=== PATIENT | female | born 1995 ===

== ENCOUNTER 2025-01-10 08:50 | Outpatient (AMB) | payer BC, SELFPAY ==
--- NOTE | 2025-01-10 08:55 | MHC.OFFVIS ---
Vital Signs 01/10/25 09:00 Height 5 ft 6 in Weight 190 lb 7.67 oz BMI 30.7 BP 92/62 Blood Pressure Location Lt brachial Position Sitting Pulse 89 Pulse Source Pulse Oximeter Pulse Oximetry (%) 98 Oxygen Delivery Method Room Air Intake Visit Reasons: Thyroid nodule Intake Note: New patient present today for Thyroid nodule office visit. Patient stated she is taking Vitamin D3, magnesium, , and Omeprazole prn. She will notify office with doses. Mobile Tester Required: No Accompanied by: Self / Same As Patient Allergies haloperidol [From Haldol] Allergy (Unknown, Verified 01/10/25 09:01) Dystonic Reaction metoclopramide [From Reglan] Allergy (Unknown, Verified 01/10/25 09:01) Dystonic Reaction Medication List - Last Reconciled 01/10/25 by Yessi Emery MD vitamin B complex 1 tab PO DAILY HPI Comments Details: 29-year-old female coming in today for initial evaluation of multinodular goiter. Was reporting trouble swallowing and primary care physician palpated the nodule. Ultrasound from October 2024 done at [facility], images not available to be reviewed, however ultrasound report shows a 1 cm right-sided lower pole nodule which is solid, isoechoic, not taller than wide, no echogenic foci, TR 3 category. Another left upper pole 1.3 X 0.7 X 0.8 cm solid, hypoechoic nodule not taller than wide, smooth, no punctate echogenic foci, TR 4 category. Both do not meet criteria for FNA. Labs from that September 2024 reviewed shows normal TSH of 2.4, with normal free T4 1.18. Patient currently denies heat or cold intolerance, diarrhea or constipation, , palpitation, anxiety, mood changes, changes in appearance of eyes or vision changes, tremors. Reports acne and hair loss.?Reports diaphoresis. Reports low energy. Reports acne whihc is new. BP is low. Reports dizziness , low sex drive. Works out a lot, difficulty losing weight. Gained 20 lbs in 6 months , despite working out and eating well. Reports easy bruising. Patient denies any pain on swallowing or difficulty breathing. Winded at home. Reports dysphagia for a couple of years. Big dry bites is difficult. Feels worsened. Feels after singing raspiness. Patient denies any history of childhood neck radiation. Denies having ever used lithium, amiodarone or biotin supplements.Just on a . Occasional valacyclovir once a year PRN for cold sores. Mother has thyroid cancer. Hypothyroidism in paternal side of the family. Been trying to get for the past 3 months. LMP 12/30/24 , periods every month Obesity BMI 30.7 kg per m2 Current weight 190 lb Despite rigorous exercise, such as heavy lifting and HIIT workouts five to six times a week, and a healthy diet of three meals per day, she struggles with a weight increase of approximately 18 pounds over the last six Physical exam General: sitting comfortably in no acute distress HEENT: normocephalic/atraumatic, Neck: supple, palpable 1 cm right-sided nodule, does have dorsocervical and supraclavicular fat pads Cardiac: normal heart sounds Pulm: normal breath sounds B/L, no added breath sounds Abd: not distended Extremities: no edema, PFSH Medical History (Updated 01/10/25 @ 09:40 by Yessi Emery MD) Obesity (BMI 30.0-34.9) Multinodular goiter Surgical History Hx of appendectomy Hx of tonsillectomy Family History Mother Thyroid cancer Father High blood pressure High cholesterol Social History Alcohol intake: current Alcohol intake frequency: a few times a month Patient Tobacco Use Status: Never used Tobacco Physical Exam Vital Signs: Last Vital Signs Pulse 89 01/10/25 09:00 BP 92/62 01/10/25 09:00 Pulse Ox 98 01/10/25 09:00 Oxygen Delivery Method Room Air 01/10/25 09:00 BMI result Body Mass Index 30.7 Assessment & Plan Assessment & Plan (1) Multinodular goiter: Code(s): E04.2 - Nontoxic multinodular goiter Category: Medical Plan: 29-year-old female with no personal history of head or neck radiation, with family history of thyroid cancers coming in today for initial evaluation of multinodular goiter. Ultrasound from October 2024 done at [facility], images not available to be reviewed, however ultrasound report shows a 1 cm right-sided lower pole nodule which is solid, isoechoic, not taller than wide, no echogenic foci, TR 3 category. Another left upper pole 1.3 X 0.7 X 0.8 cm solid, hypoechoic nodule not taller than wide, smooth, no punctate echogenic foci, TR 4 category. Both do not meet criteria for FNA. Labs from that September 2024 reviewed shows normal TSH of 2.4, with normal free T4 1.18. I explained that it is common to have thyroid nodules. About 95% of the time these nodules are benign. However if the nodule is a certain size based on features or suspicious on ultrasound then a fine need aspiration biopsy is recommended. At this time none of her nodules meet criteria for FNA. I discussed with her that we will plan to repeat an ultrasound of the her thyroid in 1 year from the last 1 which would be in October 2025. She is having a lot of nonspecific symptoms, we will plan to repeat thyroid function given last 1 was 4 months ago. Plan: -ordered TSH with reflex free T4 -plan to repeat an ultrasound of the thyroid in October 2025 (2) Obesity (BMI 30.0-34.9): Code(s): E66.811 - Obesity, class 1 Category: Medical Plan: Patient with current BMI of 30.7 kg per m2. Current weight 190 lb, used to be 172 lb 6 months ago so sometime around fall 2023 per patient. No acromegaly features. My approach includes repeating thyroid function tests to rule out dysfunction and performing a 24-hour urine cortisol test to exclude hypercortisolism given the combination of her symptoms and family history. Recommendations for potential stress reduction and lifestyle modifications were advised. I reviewed with patient the importance of weight loss as it relates to decreasing the risk of diabetes, cardiovascular disease, obstructive sleep apnea,PCOS, arthritis. We reviewed the importance of decreasing total calorie consumption, minimizing fats and carbohydrates. We discussed regarding 500 calorie deficit daily to to lose 1 lb per week by using phone joy such as [employer] fitness pal or lose it I encouraged her to maintain her regular aerobic activity and resistance training. This will also help with the goal by doing regular exercise. She would not be a good candidate for weight management medications given she is actively trying for . Plan: -ordered 24 hour urine cortisol testing -Lifestyle modification advised as mentioned above and below -follow up in 4 weeks to discuss results She did complain of some apneic episodes. Potential Sleep Apnea: Symptoms warrant further exploration, including possible referral for evaluation of sleep apnea. Patients experiencing these symptoms often benefit from sleep studies to assess for sleep disturbances. I have asked her to discuss with the primary care physician regarding this. Patient was informed and verbally consented to the use of an ambient scribe for clinic note documentation during this visit. Plan I spent 60 minutes in reviewing the record, seeing the patient and documenting in the medical record. Orders: Orders TSH reflex Free T4 Today E04.2 - Nontoxic multinodular goiter, E66.811 - Obesity, class 1 Cortisol, Free 24Hr Urine Today E04.2 - Nontoxic multinodular goiter, E66.811 - Obesity, class 1 Creatinine, 24 Hr Group Today E04.2 - Nontoxic multinodular goiter, E66.811 - Obesity, class 1 Patient Instructions: Do blood work Do 24 hr urine collection 24 hr urine collection instructions You have been asked to collect your urine for 24 hours to assess for cortisol excretion. You must choose a 24 hour period of time when you will be home. The morning of the first day, DISCARD the FIRST morning void and then note the time. You will collect every single void from then on for 24 hours. For example, if you wake up at 6am and urinate, flush down that void. You will then collect every drop of urine all day and all night through 6am the following day. You will urinate one last time at 6am for the collection. The jug of urine must be kept in the refrigerator until you bring it to the lab. Follow up in 4 weeks to discuss results Weight loss counselling ? Limit added sugars to less than 25 grams daily. There are 4.2 grams of sugar per teaspoon of sugar. A teaspoon of honey has 6 grams of sugar! Bread also can have more sugar than you think-check labels ? No soda or juices. Drink water, unsweetened iced tea or seltzer ? Limit eating out/take out or prepared meals to twice weekly at most ? Avoid red meat, hot dogs, gold and deli meat. Substitute plant protein for animal protein as much as you can. Beans, nuts, tofu, soy milk ? Limit cheese to 1 ounce a few times weekly ? Eat high fiber foods like beans, apples and green veggies, salsa is a great snack with whole grain cracker like Wasa ? Look for the whole grain stamp when choosing bread etc. Aim for 48 grams of whole grains daily. Whole wheat does not equal whole grains! ? Don't keep tempting treats in the house. Go out once in a while for a treat. ? Don't eat anything deep fried or cream based-no sour cream Talk to PCP about evaluation for sleep apnea Coding Level of Care Code New Pt Level 5 (14073) Diagnoses Multinodular goiter E04.2 Obesity (BMI 30.0-34.9) E66.811 Time Spent (min) 60
[2025-01-10 09:00] VITALS: BP 92/62; PULSE 89; O2SAT 98; BMI 30.7
== END 2025-01-10 09:44 | disposition home or self-care (01) ==
PROVIDERS: PCP Obstetrics & Gynecology; Visit Provider Student in an Organized Health Care Education/Training Program
DX: E04.2 Nontoxic multinodular goiter (principal); E66.811 Obesity, class 1
CPT/HCPCS: 99205

== ENCOUNTER 2025-02-08 14:52 | Outpatient (REF) | payer BC, SELFPAY ==
[2025-02-08 16:19] LABS: TSH reflex Free T4 3.46 uIU/mL (0.32-4.0)
--- OUTSIDE RECORDS SUMMARY | 2025-02-08 18:03 | XMS_ITS | Clinical Summary ---
Author Organization [facility] Address [address] [place] [address] Phone Care Team Providers Care Cloth Checker Name Role Phone Elyssa Esquivel Primary Care Provider [phone] Social History Tobacco Use Types Packs/Day Years Used Date Smoking Tobacco: Never Assessed Comments Unknown Sex and Gender Information Value Date Recorded Sex Assigned at Not on file Legal Sex Female 12:22 AM EST Gender Identity Not on file Sexual Orientation Not on file Plan of Treatment Upcoming Encounters Date Type Department Care Team (Late st Contact Info) Description 03/02/2025 2:00 PM EDT Office Visit Obstetrics & Gynecology - [address] [address] LewisEmely gresham, CNM [address] [place] [address] Health Maintenance Due Date Last Done Comments DTaP,Tdap,and Td Vaccines (1 - Tdap) 2012 Hepatitis B Vaccines (1 of 3 - 19+ 3-dose series) 2012 Cervical Cancer Screening: P ap Smear 2014 COVID-19 Vaccine ( - 2023-2 5 season) 2024 Influenza Vaccine (#1) 2024 Depression Screening 01/28/2025 HIV Screening 01/28/2025 Hepatitis C Screening 01/28/2025 Social Influencers of Health Screening 01/28/2025 HIB Vaccines Aged Out No longer eligi ble based on patient's age to complete this topic HPV Vaccines Aged Out No longer eligi ble based on patient's age to complete this topic Hepatitis A Vaccines Aged Out No long er eligible based on patient's age to complete this topic IPV Vaccines Aged Out No longer eligi ble based on patient's age to complete this topic MMR Vaccines Aged Out No longer eligi ble based on patient's age to complete this topic Meningococcal ACWY Vaccine Aged Out N o longer eligible based on patient's age to complete this topic Meningococcal B Vaccine Aged Out No l onger eligible based on patient's age to complete this topic Pneumococcal Vaccine: Pediat rics (0 to 5 Years) and At-Risk Patients (6 to 64 Years) Aged Out No longer eligible b ased on patient's age to complete this topic RSV Immunization Patients Un yuli 20 months Aged Out No longer eligible b ased on patient's age to complete this topic Varicella Vaccines Aged Out No longer eligible based on patient's age to complete this topic Insurance [facility] Care Teams Cloth Checker Relationship Specialty Start Date End Date Elyssa Esquivel PA [address] [place] [address] PCP - General 01/27/25
== END 2025-02-08 14:53 | disposition home or self-care (01) ==
LOC: HO.LAB 14:52
PROVIDERS: PCP Internal Medicine; Visit Provider Student in an Organized Health Care Education/Training Program
DX: E04.2 Nontoxic multinodular goiter (principal); E66.811 Obesity, class 1
CPT/HCPCS: 36415; 84443

== ENCOUNTER 2025-02-14 09:09 | Outpatient (REF) | payer BC, SELFPAY ==
[2025-02-14 10:37] LABS: Free T4 (Free Thyroxine) 0.88 ng/dL (0.71-1.85); T4 Thyroxine 6.5 ug/dL (4.5-12.0)
--- OUTSIDE RECORDS SUMMARY | 2025-02-14 10:38 | XMS_ITS | Clinical Summary ---
Author Organization [facility] Address [address] [place] [address] Phone Care Team Providers Care Job Site Superintendent Name Role Phone Elyssa Esquivel Primary Care Provider [phone] Social History Tobacco Use Types Packs/Day Years [...] EDT Office Visit Obstetrics & Gynecology - [address] [address] LewisEmely gresham, CNM [address] [place] [address] Health Maintenance Due Date Last Done Comments [...] topic Insurance [facility] Care Teams Job Site Superintendent Relationship Specialty Start Date End Date Elyssa Esquivel PA [address] [place] [address] PCP - General 01/27/25
[2025-02-15 10:28] LABS: Triiodothyronine T3 Free 3.4 pg/mL (2.3-4.2); Triiodothyronine T3 Total 117 ng/dL (76-181)
[2025-02-15 19:13] LABS: Thyroid Peroxidase Antibodies 387 IU/mL (<9)
== END 2025-02-14 09:10 | disposition home or self-care (01) ==
LOC: HO.LAB 09:09
PROVIDERS: PCP Obstetrics & Gynecology; Visit Provider Student in an Organized Health Care Education/Training Program
DX: E04.2 Nontoxic multinodular goiter (principal)
CPT/HCPCS: 36415; 84436; 84439; 84443; 84480; 84481; 86376

== ENCOUNTER 2025-02-14 09:09 | Outpatient (AMB) | payer BC, SELFPAY ==
--- NOTE | 2025-02-14 09:11 | MHC.OFFVIS ---
Vital Signs 02/14/25 09:12 Height 5 ft 6 in Weight 189 lb 6.033 oz BMI 30.6 BP 96/50 L Blood Pressure Location Lt brachial Position Sitting Pulse 83 Pulse Source Pulse Oximeter Pulse Oximetry (%) 99 Oxygen Delivery Method Room Air Intake Visit Reasons: Thyroid nodule Intake Note: Patient present today for Thyroid Nodule follow up. Software Test Analyst Required: No Accompanied by: Self / Same As Patient Allergies haloperidol [From Haldol] Allergy (Unknown, Verified 02/14/25 09:15) Dystonic Reaction metoclopramide [From Reglan] Allergy (Unknown, Verified 02/14/25 09:15) Dystonic Reaction Medication List - Last Reconciled 02/14/25 by Yessi Emery MD [id number] mg-mcg-mg (One Daily ) pkgs PO HPI Comments Details: 29-year-old female coming in today for initial evaluation of multinodular goiter. Was reporting trouble swallowing and primary care physician palpated the nodule. Ultrasound from October 2024 done at [facility], images not available to be reviewed, however ultrasound report shows a 1 cm right-sided lower pole nodule which is solid, isoechoic, not taller than wide, no echogenic foci, TR 3 category. Another left upper pole 1.3 X 0.7 X 0.8 cm solid, hypoechoic nodule not taller than wide, smooth, no punctate echogenic foci, TR 4 category. Both do not meet criteria for FNA. Labs from that September 2024 reviewed shows normal TSH of 2.4, with normal free T4 1.18. Patient currently denies heat or cold intolerance, diarrhea or constipation, , palpitation, anxiety, mood changes, changes in appearance of eyes or vision changes, tremors. Reports acne and hair loss.?Reports diaphoresis. Reports low energy. Reports acne whihc is new. BP is low. Reports dizziness , low sex drive. Works out a lot, difficulty losing weight. Gained 20 lbs in 6 months , despite working out and eating well. Reports easy bruising. Patient denies any pain on swallowing or difficulty breathing. Winded at home. Reports dysphagia for a couple of years. Big dry bites is difficult. Feels worsened. Feels after singing raspiness. Patient denies any history of childhood neck radiation. Denies having ever used lithium, amiodarone or biotin supplements.Just on a . Occasional valacyclovir once a year PRN for cold sores. Mother has thyroid cancer. Hypothyroidism in paternal side of the family. Been trying to get for the past 3 months. LMP 12/30/24 , periods every month Interval history 02/08/25: TSH 3.46 6 weeks today 02/14/25 , G1 NICK per patient Oct 06 2026 Has appt with OB 03/02/[address] Extreme fatigue and nausea One vomiting Lack of apetite Obesity: not adressed note: Patient is currently 6 weeks , would like to hold off on further management of this for now. BMI 30.7 kg per m2 Current weight 190 lb Despite rigorous exercise, such as heavy lifting and HIIT workouts five to six times a week, and a healthy diet of three meals per day, she struggles with a weight increase of approximately 18 pounds over the last six Physical exam General: sitting comfortably in no acute distress HEENT: normocephalic/atraumatic, Neck: supple, palpable 1 cm right-sided nodule, does have dorsocervical and supraclavicular fat pads Cardiac: normal heart sounds Pulm: normal breath sounds B/L, no added breath sounds Abd: not distended Extremities: no edema, Laboratory Tests 02/08/25 15:04 TSH 3.46 [facility] Medical History (Updated 01/10/25 @ 09:40 by Yessi Emery MD) Obesity (BMI 30.0-34.9) Multinodular goiter Surgical History Hx of appendectomy Hx of tonsillectomy Family History Mother Thyroid cancer Father High blood pressure High cholesterol Social History Alcohol intake: current Alcohol intake frequency: a few times a month Patient Tobacco Use Status: Never used Tobacco Physical Exam Vital Signs: Last Vital Signs Pulse 83 02/14/25 09:12 BP 96/50 L 02/14/25 09:12 Pulse Ox 99 02/14/25 09:12 Oxygen Delivery Method Room Air 02/14/25 09:12 BMI result Body Mass Index 30.6 Assessment & Plan Assessment & Plan (1) Multinodular goiter: Code(s): E04.2 - Nontoxic multinodular goiter Category: Medical Plan: 29-year-old female with no personal history of head or neck radiation, with family history of thyroid cancers coming in today for initial evaluation of multinodular goiter. Ultrasound from October 2024 done at [facility], images not available to be reviewed, however ultrasound report shows a 1 cm right-sided lower pole nodule which is solid, isoechoic, not taller than wide, no echogenic foci, TR 3 category. Another left upper pole 1.3 X 0.7 X 0.8 cm solid, hypoechoic nodule not taller than wide, smooth, no punctate echogenic foci, TR 4 category. Both do not meet criteria for FNA. Labs from that September 2024 reviewed shows normal TSH of 2.4, with normal free T4 1.18. Labs from 02/08/2025 showed TSH was 3.46. I explained that it is common to have thyroid nodules. About 95% of the time these nodules are benign. However if the nodule is a certain size based on features or suspicious on ultrasound then a fine need aspiration biopsy is recommended. At this time none of her nodules meet criteria for FNA. I discussed with her that we will plan to repeat an ultrasound of the her thyroid in 1 year from the last 1 which would be in October 2025. Given her estimated due date is in October 2025, she would like to wait to get the ultrasound in November 2025. She can follow up with me in December 2025 to discuss results. She is currently 6 weeks , and a TSH was slightly at the higher end of normal on 02/08/2025, I would like to do comprehensive thyroid testing and repeat labs. Plan: -ordered TSH TSH, free T4, TPO antibodies, total T4 and total T3 levels, we will communicate results over the phone -repeat thyroid ultrasound ordered for November 2025, with follow up in December 2025 Plan see above Orders: Orders Free T4 (Free Thyroxine) Today E04.2 - Nontoxic multinodular goiter Triiodothyronine T3 Free Today E04.2 - Nontoxic multinodular goiter Triiodothyronine T3 Total Today E04.2 - Nontoxic multinodular goiter Thyroid Peroxidase Antibodies Today E04.2 - Nontoxic multinodular goiter Thyroid Stimulating Hormone Today E04.2 - Nontoxic multinodular goiter T4 Thyroxine Today E04.2 - Nontoxic multinodular goiter US thyroid 11/17/25 E04.2 - Nontoxic multinodular goiter Patient Instructions: Do blood work today or sometime this week Do US of the thyroid in Nov 2025 and follow up in Dec 2025 to discuss results Coding Level of Care Code Est Pt Level 3 (16834) Diagnoses Multinodular goiter E04.2
[2025-02-14 09:12] VITALS: BP 96/50; PULSE 83; O2SAT 99; BMI 30.6
--- OUTSIDE RECORDS SUMMARY | 2025-02-14 10:03 | XMS_ITS | Clinical Summary ---
Author Organization [facility] Address [address] [place] [address] Phone Care Team Providers Care Costume Designer Name Role Phone Elyssa Esquivel Primary Care Provider [phone] Social History Tobacco Use Types Packs/Day Years [...] EDT Office Visit Obstetrics & Gynecology - [address] [address] LewisEmley gresham, CNM [address] [place] [address] Health Maintenance Due Date Last Done Comments DTaP,Tdap,and Td Vaccines (1 - Tdap) 2012 Hepatitis B Vaccines (1 of 3 - 19+ 3-dose series) 2012 Cervical Cancer Screening: P ap Smear 2014 COVID-19 Vaccine ( - 2023-2 5 season) 2024 Depression Screening 01/28/2025 HIV Screening 01/28/2025 Hepatitis C Screening 01/28/2025 Social Influencers of Health Screening 01/28/2025 Influenza Vaccine (Season Ended) 2025 HIB Vaccines Aged Out No longer eligi [...] patient's age to complete this topic Insurance [facility] Care Teams Costume Designer Relationship Specialty Start Date End Date Elyssa Esquivel PA [address] [place] [address] PCP - General 01/27/25
== END 2025-02-14 09:29 | disposition home or self-care (01) ==
PROVIDERS: PCP Obstetrics & Gynecology; Visit Provider Student in an Organized Health Care Education/Training Program
DX: E04.2 Nontoxic multinodular goiter (principal)
CPT/HCPCS: 99213

== ENCOUNTER 2025-04-04 11:20 | Outpatient (REF) | payer BC, SELFPAY ==
--- OUTSIDE RECORDS SUMMARY | 2025-04-04 12:44 | XMS_ITS | Clinical Summary ---
Author Organization [facility] Address [address] [place] [address] Phone Care Team Providers Care Application Penetration Tester Name Role Phone Elyssa Esquivel Primary Care Provider [phone] Allergies Active Allergy Reactions Criticality Noted Date Comments Haloperidol Muscular Issues 03/14/2025 Metoclopramide Hcl Muscular Issues 03/24/2025 Medications levothyroxine (SYNTHROID, LEVOTHROID) 25 mcg tablet Take 1 tablet (25 mcg total) by mouth 1 (one) time each day. 02/16/2025 Active vitamin iron fum-folic acid 27-0.8 mg per tablet Take 1 tablet by mouth 1 (one) time each day. Active aspirin 81 mg EC tabletIndication s:Encounter for supervision of normal first in first trimester Take 1 tablet (81 mg total) by mouth 1 (one) time each day. 30 tablet 6 03/14/2025 Active valACYclovir (VALTREX) 500 mg tablet TAKE 4 TABS AT FIRST SIGN OF ATTACK AND THEN TAKE 4 TABS 12 HOURS LATER. 10/08/2024 Active Active Problems Problem Noted Date Diagnosed Date Hypothyroid in , antepartum 03/30/2025 Overview (03/31/2025): 03/31/2025 labs from outside show: 02/14/2025 - TSH 4.10 ( H), free t4 0.88 ( NL), t4 6.5 ( nl), TPO Ab 387 (H) [nl is < 9] Make sure to determine if ALWAYS hypo or if was hyperthyroid and then hypothyroid from treatment- this will determine if we should check TRab and refer to Endo and MFM TRAb during the first trimester if elevated recheck at 18 to 22 and again at 30 to 34 weeks fetus needs monitoring by MFM with Q4 week growth as long as TRab elevated Initial Labs: TSH with reflex Two approaches for pre- meds: 1) TSH at diagnosis of and increase dose of levothyroxine if TSH >2.5, check TSH 4 weeks later 2) Double dose of levothyroxine two days per week, continue baseline dose other days, TSH 4-6 weeks later, keep TSH< 2.5 Q trimester TSH with reflex once stable on meds Do not treat subclinical hypothyroid Do not test for thyroid disease in hyperemesis unless other overt signs of hyperthyroid exist Growth US at 32 weeks Return to pre- dose of levothyroxine while inpatient and provide 1 mo Rx with plan for follow with PCP Herpes zoster 03/24/2025 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 [facility] site: [facility] ([facility]): [address] [place] [address] ([phone]) 2. Delivery site: [facility] 3. Mobile Mommas: 4. Dating criteria: 5. Blood type: 6. Genetic screening: Date: Result: Panorama: Declined Horizon: Declined Nuchal: Ordered Survey: MSAFP: 6. GBS: Date: 7. FOB name: Pilo Molina [birth year], 8. Plans A. Epidural or other pain management - B. Labor support identified - C. Tdap - Date: Flu - Date: D. Breast or Bottle feed: Breast E. Baby's name - F. Circumcision - 9. Hospital Course: Anxiety and depression 03/14/2025 Overview (03/30/2025): She has a hx of anx/dep which she acknowledges has worsened since becoming . She has never been medicated for it and finds talk therapy helpful. She plans on reaching out to her therapist today. Warning s/sx discussed and pt advised if affecting her daily life or worsens to contact us. She states understanding. She is aware she is more at risk of developing depression. Her mother is here with her and supportive. Pt states her partner is also supportive. She denies SI/SA. 03/30/2025 EPDS 12. She has a therapist appt on next week. Estimated Date of Delivery Comme nts Yes 10/06/2025 Based on last me nstrual period of 12/30/2024 (Exact Date) Resolved Problems Problem Noted Date Diagnosed Date Resolved Date Contact dermatitis 03/24/2025 5 Diarrhea 03/24/2025 03/30/2025 Rash 03/24/2025 03/30/2025 Encounters Date Type Department Care Team Description 03/30/2025 3:00 PM EDT Initial Obstetrics & Gynecology [address] [phone] Emely Lewis CNM [place]: 12w6d 03/14/2025 10:00 AM EDT Clinical Support Obstetrics & Gynecology [address] [address] Encounter for supervision of normal first in first trimester (Primary Dx); Encounter for screening of mother; Encounter for screening for nuchal translucency; Encounter for screening for malformations; Anxiety and depression 03/02/2025 2:00 PM EDT Office Visit Obstetrics & Gynecology [address] [phone] Emely Lewis CNM test positive (Primary Dx); Hypothyroid in , antepartum; History of depression from Last 3 Months Immunizations Name Administration Dates Next Due Hepatitis B (Zjnpoav-J-Doomh , Recombivax HB-Adult) 19yo and older 11/02/2019,05/25/2019,04/28/2019 Influenza trivalent, with pr eservative (Fluzone; Afluria) 6mo and older 07/28/2021,07/07/2020,07/26/2019 Surgical History Surgery Date Site/Laterality Comments APPENDECTOMY 11/03/2010 - 11/02/2011 Medical History Medical History Date Comments Thyroid disorder Anxiety and depression Diarrhea 03/24/2025 Contact dermatitis 03/24/2025 Rash 03/24/2025 Family History Medical History Relation Name Comments No Known Problems Brother x3 Hypertension Father Heart attack Maternal Grandfather Thyroid disease Maternal Grandmother Thyroid cancer Mother varicose veins Mother hypertension and diabetes Paternal Grandfather hypertension and diabetes Paternal Grandmother No Known Problems Sister x1 Relation Name Status Comments Brother x3 Alive Father Alive Maternal Grandfather Maternal Grandmother Mother Alive Paternal Grandfather Alive Paternal Grandmother Alive Sister x1 Alive Social History Tobacco Use Types Packs/Day Years Used Date Smoking Tobacco: Never Smokeless Tobacco: Never Tobacco Cessation:Counseling Given: Not Answered Alcohol Use Standard Drinks/Week Comments Never 0 (1 standard drink = 0.6 oz pur e alcohol) Estimated Date of Delivery Comme nts Yes 10/06/2025 Based on last me nstrual period of 12/30/2024 (Exact Date) Sex and Gender Information Value Date Recorded Sex Assigned at Not on file Legal Sex Female 12:22 AM EST Gender Identity Not on file Sexual Orientation Not on file 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 Not on file Not on file Not on file Obstetrics History Para Term AB IAB SAB Ectopic Multiple Livin g Live Births 1 0 0 0 0 0 0 0 0 0 0 Date Outcome GA Total Labor Labor/2nd/3rd Weight Sex Type Anes PTL Saima A1 A5 Name Clin Current Summary Episode Dates Number of Fetuses Estimated Date of Delivery 03/14/2025 - Present (04/04/2025) 10/06/2025 (set by Kristen Ingram RN on 03/14/2025 based on Last Menstrual Period on 12/30/2024 (Exact Date)) Dating Summary Based On NICK GA Diff Last Menstrual Period on 12/30/2024 (Exact Date) 10/06/2025 Working Alternate NICK Entry 10/06/2025 Same Comment:Date entered prior t o episode creation Vitals Pregravid Weight Height TWG (As of 04/04/2025) Pregrav id BMI 86.6 kg (191 lb) 1.702 m (67 ) 1.996 kg (4 lb 6.4 oz) 29.91 Notes Progress Notes - Initial Pre kade - 03/30/2025 - GA:12w6d 03/30/2025 - 12w6d - Emely Lewis CNM OB 12 week appt IP: S: Brittni is a 29 y.o. year old here for IP visit with her patient and spouse. Her is planned. She and the father of the baby are happy. Patient's last menstrual period was 12/30/2024 (exact date). She is certain of her LMP with regular cycles. is currently dated by LMP only. She complains of nausea and breast tenderness. She denies vaginal bleeding or cramping. Flu vaccine: not indicated at today's visit O: Blood pressure 121/79, weight 88.6 kg (195 lb 6.4 oz), last menstrual period 12/30/2024, not currently . See OB physical and labs. Vitals BP: 121/79 (p 86) Weight: 88.6 kg (195 lb 6.4 oz) Assessment Heart Rate: 158 Fundal Height (cm): 12 cm Vaginal Drainage Leaking Fluid: No No results found for: ABORH Lab Results Component Value Date RH Positive 03/14/2025 A: at 12w6d weeks gestation. 1. Encounter for supervision of normal first in first trimester 2. Hypothyroid in , antepartum 3. Anxiety and depression 4. 12 weeks gestation of 5. Screening for malignant neoplasm of cervix 6. Screen for STD (sexually transmitted disease) 7. Screening for depression P: Pap obtained today. Genprobe obtained today. Oriented to THoNE MG and anticipated course. Discussed collaborative practice and [facility] delivery. Reviewed healthy eating and normal weight gain in . Encouraged patient to push PO fluids. Counseled about warning signs of the first trimester and how to contact extension worker provider. Discussed the benefits of breast feeding and strongly encouraged to consider this. Counseled regarding the diagnosis of anomalies. She was offered a referral to maternal medicine for PANORAMA testing. She declines the serum testing, is netta for NL on next week. the referral. Pt is followed by Endocrine/Diabetes office in [facility] to obtain records for co- management. Prob list updated Okay to change to an otc gummy pnv Start baby asa due to primigravida/ reduce risk of Pre-eclampsia RTO 4 weeks. The patient does not require anesthesia consult. This patient's VTE risk status is low. [place] Depression Scale: In the Past 7 Days I have been able to laugh and see the funny side of things.: Not quite so much now I have looked forward with enjoyment to things.: Rather less than I used to I have blamed myself unnecessarily when things went wrong.: Yes, some of the time I have been anxious or worried for no good reason.: Yes, sometimes I have felt scared or panicky for no good reason.: Yes, sometimes Things have been getting on top of me.: No, most of the time I have coped quite well I have been so unhappy that I have had difficulty sleeping.: Not very often I have felt sad or miserable.: Not very often I have been so unhappy that I have been crying.: Only occasionally The thought of harming myself has occurred to me.: Never [place] Depression Scale Total: 12 [place] SCREENING CHARGE (Clinic Only): [id number] Emely Lewis CNM on 03/30/2025 at 4:14 PM EDT 03/30/2025 - 12w6d - Ramin Valdez MA Pt here for IP, needs pap EPDS: 12 Progress Notes - Clinical Remy pport - 03/14/2025 - GA:10w4d 03/14/2025 - 10w4d - Kristen Decker RN Brittni Molina is a 29 y.o. old female at 10w4d. This is Planned. The patient feels happy about the . The FOB is supportive and happy. Patient's last menstrual period was 12/30/2024 (exact date). which would make her currently 10w4d with an Estimated Date of Delivery: 10/06/25. She is certain of her date. An ultrasound has been ordered to confirm dating but pt unsure why. She would like u/s canceled and nuchal ordered. Patient has significant history of: No previous history of OB Past Medical History: Have you had or do you currently have: Diabetes? No Hypertension? No Heart disease, Mitral valve Prolapse, or Rheumatic fever? No An Autoimmune disease such as Lupus or Rheumatoid Arthritis? No Epilepsy, Seizures, or Spells? No Migraine Headaches? During childhood. Per pt 2-3 yrs ago she had a bad migraine, went to [place] , they gave her haldol and she had a bad reaction. Stroke or loss of function or sensation? No Additional Questions: Have you ever been treated for anxiety and/or depression? Yes, anx and dep talk therapy only Are you having problems with crying spells or loss of self-esteem? Yes, pt acknowledges worsening anx/dep since . She denies SI/SA. Have you ever required psychiatric care? no Have you ever had hepatitis, liver disease or jaundice? No Have you ever been treated for blood clots in your veins, deep venous thrombosis, inflammation in the veins, thrombosis, phlebitis, pulmonary embolism or varicosities? No Have you had excessive bleeding after surgery or dental work? No Do you bleed more than other women after a cut or scratch? No Do you have a history of anemia? During childhood Have you ever had Thyroid problems or taken Thyroid medications? Yes,pt just started taking levothyroxine rx'd by endo within the last month Do you have any other Endocrine Problems (ie. PCOS)? No Have you ever been in a major accident or suffered serious trauma? No Within the last year, has anyone hit, slapped, kicked or otherwise hurt you? No In the last year, has anyone forced you to have sex when you didn't want to? No Do you feel safe at home? Yes Have you ever received a blood transfusion? No Would you refuse a blood transfusion if a doctor judged to be medically necessary? No Would you rather than receive a blood transfusion? No If you answered yes to the above questions, is this for advent reasons? N/A Do you know what your blood type is or if you are Rh Negative? unknown Have you ever had abnormal antibodies in your blood? no Have you ever had asthma? Yes, exercise or cold induced. Last used approx 5 yrs ago Have you every had Tuberculosis? No Have you ever had any breast problems? Pt states swollen lymph node that comes and goes located by right breast Have you ever breast fed? N/A Have you ever had any gynecological surgical procedures such as cervical conization, LEEP procedure, Laser treatment, cryosurgery of the cervix or dilation and curettage, etc? No Have you had any other surgical procedures? Yes, appendix removed Have you ever been hospitalized overnight for a non-surgical reason excluding normal delivery? Yes, migraine headache 2-3 yrs ago, tx'd with hadol but had a bad reaction so she was admitted Have you ever had anesthesia complications? No Have you ever had an abnormal pap smear? No Do you have a history of abnormalties of the uterus? No Did your mother take CELIA or any other hormones when she was with you? No Did it take more than one year to become ? No Have you ever been evaluated or treated for infertility? No Is there a history of medical problems in your family which you feel might adversely affect your health or ? No Do you have any other problems we have not asked you about which you feel may be important for us to know for this ? Yes, recurrent cold sore . Pt has valtrex script Do you currently have any of the following symptoms since your last menstrual period: Abdominal pain, blood in the stool or urine, chest pain, shortness of breath, coughing or vomiting up blood, your heart racing or skipping beats, nausea and/or vomiting, pain on urination, or vaginal discharge or vaginal bleeding? No Genetic Screening/Teratology Counseling- Includes patient, baby's father, or anyone in either family with: Patient's age 35 years or older as of estimated date of delivery No Thalassemia (Libyan, Occitan, Mediterranean, or background): MCV less than 80 No Neural tube defect (Meningomyelocele, Spina bifida, or Anencephaly) No Congenital heart defect No Down syndrome No Alex-Sachs (Ashkenazi Sikhism, Cajun, Surinamese Citizen Of [place]) No Mckayla disease (Ashkenazi Sikhism) No Familial dysautonomia (Ashkenazi Sikhism) No Sickle cell disease or trait () No Hemophilia or other blood disorders No Muscular dystrophy No Cystic fibrosis No Pike's chorea No Intellectual disability and/or autism Yes, possibly a 1st cousin If yes, was the person tested for Fragile X? N/A Other inherited genetic or chromosomal disorder No Maternal metabolic disorder (eg. Type 1 diabetes, PKU) No Patient or baby's father had child with defects not listed above No Recurrent loss, or a stillbirth Yes, per pt her mothers sister has had multiple sabs Medications (including supplements, vitamins, herbs, or OTC drugs)/illicit/recreational drugs/alcohol since last menstrual period Yes If yes, agent(s) and strength/dosage: Any other Yes, levothyroxine 25mcg daily OB Infection History: Do you object to being tested for Hepatitis B? No Do you object to being tested for HIV? No Do you feel that you are at high risk for coming contact with the AIDS virus? No Have you ever been treated for tuberculosis? No Have you ever received the BCG vaccine? No Have you ever had a positive skin test for Tuberculosis? No Do you live with someone who has Tuberculosis? No Have you ever been exposed to Tuberculosis? No Do you have Genital Herpes? No Does your partner have Genital Herpes? No Have you had a rash or viral illness since your last period? No Have you ever had Gonorrhea, Chlamydia, Syphilis, Venereal Warts, Trichomoniasis, Pelvic Inflammatory Disease (PID) or any other sexually transmitted disease? Yes, pt doesn't recall what STI Do you know if you are a Group B Streptococcus Carrier? unknown Did you have the Chicken Pox/Varicella? yes Were you vaccinated against Chicken Pox/Varicella? unknown Have you had any other infectious diseases? Yes, shingles on her face above lip. 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 Brittni Molina has also been made aware of the time sensitive nature for this testing to be completed. . The patient now has a gestational age of 10w4d. The patient has agreed that she does want nuchal lucency testing. Ethnicity Based Genetic Testing has been reviewed and the [employer] information sheet has been provided to the patient in their After Visit Summary. The patient was also advised that genetic testing may not be covered by all insurances. The patients states that they understand this information. The patient states that she has not had the genetic screening for Horizon 14 done in the past during a previous . Results were n/a. The patient has agreed that she wants to check her insurance coverage first before deciding if want genetic testing for Horizon 14 and panorama The following Labs have been ordered: Obstetric Panel, HIV with verbal Consent, Hepatitis C, Varicella titer, Urine Culture, and UDS She is aware that her insurance may or may not cover Panorama and/or Horizon 14 test and discussed mendoza only jaquez for test(s) - info given today in her after visit summary . She would not like to proceed with testing. For Horizon Carrier Screening, if patient has [employer], [facility] or [employer] insurances: Not Applicable Electronically signed by: Kristen Ingram RN 03/14/25 10:38 AM EDT Last Filed Vital Signs Vital Sign Reading Time Taken Comments Blood Pressure 121/79 03/30/2025 3:08 PM EDT p 8 6 Pulse 77 03/14/2025 10:33 AM EDT Temperature - - Respiratory Rate - - Oxygen Saturation - - Inhaled Oxygen Concentration - - Weight 88.6 kg (195 lb 6.4 oz) 03/30/2025 3:08 P M EDT Height 170.2 cm (5' 7 ) 03/14/2025 10:33 AM EDT Body Mass Index 30.6 03/14/2025 10:33 AM EDT Plan of Treatment Upcoming Encounters Date Type Department Care Team (Latest Contact Info) Description 04/04/2025 1:00 PM EDT Ancillary Procedure Maternal [address] [phone] Encounter for screening for nuchal translucency; Encounter for screening for malformations; Encounter for supervision of normal first in first trimester 04/25/2025 11:00 AM EDT Routine Obstetrics & Gynecology - [facility] [address] [place] [address] Kely Abraham CNM [address] [place] [address] Health Maintenance Due Date Last Done Comments DTaP,Tdap,and Td Vaccines (1 - Tdap) 2012 COVID-19 Vaccine (2023-2 5 season) 2024 09/22/2021, 12/22/2020, 12/01/2020 Depression Screening 01/28/2025 Social Influencers of Health Screening 01/28/2025 Influenza Vaccine (Season Ended) 2025 07/28/2021, 07/07/2020, 07/26/2019 Cervical Cancer Screening: HPV 03/30/2030 03/30/2025 Hepatitis B Vaccines Completed 11/02/2019, 05/25/2019, 04/28/2019 HIV Screening Completed 03/14/2025 Hepatitis C Screening Completed 03/14/2025 HIB Vaccines Aged Out No longer eligi [...] age to complete this topic Pneumococcal Vaccine: Pediatrics (0 to 5 Years) and At-Risk Patients (6 to 64 Years) Aged Out No longer eligible b ased on patient's age to complete this topic RSV Immunization Patients Under 20 months Aged Out No longer eligible b ased on patient's age to complete this topic Procedures Procedure Name Priority Date/Time Associated Diagnosis Comments PAP SMEAR Routine 03/30/2025 3:38 PM EDT Encounter for supervision of normal first in first trimester Screening for malignant neoplasm of cervix HPV WITH REFLEX GENOTYPE Routine 03/30/2025 3:38 PM EDT Encounter for supervision of normal first in first trimester Screening for malignant neoplasm of cervix DRUG ABUSE SCREEN EXPANDED WITH REFLEX CONFIRMATION, URINE Routine 03/14/2025 12:01 PM EDT Encounter for screening of mother Encounter for supervision of normal first in first trimester CULTURE URINE Routine 03/14/2025 12:01 PM EDT Encounter for screening of mother Encounter for supervision of normal first in first trimester CBC WITH AUTO DIFFERENTIAL Routine 03/14/2025 11:29 AM EDT Encounter for screening of mother Encounter for supervision of normal first in first trimester TYPE AND SCREEN Routine 03/14/2025 11:29 AM EDT Encounter for screening of mother Encounter for supervision of normal first in first trimester TREPONEMA PALLIDUM ANTIBODY WITH REFLEX TO RPR AND PARTICLE AGGLUTINATION Routine 03/14/2025 11:29 AM EDT Encounter for screening of mother Encounter for supervision of normal first in first trimester RUBELLA ANTIBODY IGG Routine 03/14/2025 11:29 AM EDT Encounter for screening of mother Encounter for supervision of normal first in first trimester HIV 1, 2 ANTIBODY, P24 ANTIGEN WITH REFLEX TO DIFFERENTIATION Routine 03/14/2025 11:29 AM EDT Encounter for screening of mother Encounter for supervision of normal first in first trimester HEPATITIS C ANTIBODY Routine 03/14/2025 11:29 AM EDT Encounter for screening of mother Encounter for supervision of normal first in first trimester CBC AND DIFFERENTIAL Routine 03/14/2025 11:29 AM EDT Encounter for screening of mother Encounter for supervision of normal first in first trimester HEPATITIS B SURFACE ANTIGEN WITH CONFIRMATION Routine 03/14/2025 11:29 AM EDT Encounter for screening of mother Encounter for supervision of normal first in first trimester VARICELLA ZOSTER ANTIBODY IGG Routine 03/14/2025 11:29 AM EDT Encounter for screening of mother Encounter for supervision of normal first in first trimester POC , URINE DIAGNOSTIC Routine 03/02/2025 2:17 PM EDT test positive from Last 3 Months Results * HPV with reflex genotype (03/30/2025 3:38 PM EDT) HPV Negative Negative LAB MICROBIOLOGY METHOD 04/01/2025 9:50 AM EDT [facility] Brushing/Spatula Cervix uteri structure / Unknown 03/30/2025 3:38 PM EDT 03/31/2025 6:17 AM EDT Emely Lewis [facility] MOLECULAR DIAGNOSTICS ORD ERABLES Final Result [facility] [address] [place] [address], * Pap smear (03/30/2025 3:38 PM EDT) Interpretation Negative for intraepithelial lesion or malignancy 03/31/2025 4:36 PM EDT [facility] General Categorization Negative 03/31/2025 4:36 PM EDT [facility] Specimen Adequacy Satisfactory for evaluation, endocervical/yu sformation zone component absent 03/31/2025 4:36 PM EDT [facility] Pap Methodology Liquid Based Pap Test 03/31/2025 4:36 PM EDT [facility] Disclaimer The Pap test is a screening test which carries an inherent false negative rate. These test results should be correlated with the patient's clinical findings and history. This Pap test was processed using an automated screening system. Technical cytopathology services provided by [facility], at [address] [place] [address] (CLIA # [id number]/Alexandre Brown MD, Senior Manager Quality Assurance.) 03/31/2025 4:36 PM EDT [facility] Console Pap Interpretation Reported 03/31/2025 4:36 PM EDT [facility] Brushing/Spatula Cervix uteri structure / Unknown 03/30/2025 3:38 PM EDT 03/31/2025 6:17 AM EDT Em[facility] CYTOLOGY ORDERABLES Final Result [facility] [address] [place] [address], [place] [phone] * Drug abuse screen expanded with reflex confirmation, urine (03/14/2025 12:01 PM EDT) Amphetamine Screen, Ur Negative Negative LAB CHEMISTRY METHOD 03/14/2025 2:05 PM EDT [facility] Comment:Certain OTC medicati ons containing ephedrine, phenylephrine, pseudoephedrine and phenylpropanolamine can cause false positive results. Barbiturate Screen, Ur Negative Negative LAB CHEMISTRY METHOD 03/14/2025 2:05 PM EDT [facility] Benzodiazepine Screen, Ur Negative Negative LAB CHEMISTRY METHOD 03/14/2025 2:05 PM EDT [facility] Cocaine Screen, Ur Negative Negative LAB CHEMISTRY METHOD 03/14/2025 2:05 PM EDT [facility] Opiate Screen, Ur Negative Negative LAB CHEMISTRY METHOD 03/14/2025 2:05 PM EDT [facility] Cannabinoid (THC) Screen, Ur Negative Negative LAB CHEMISTRY METHOD 03/14/2025 2:05 PM EDT [facility] Comment:Specimens from patie nts taking pantoprazole sodium (Protonix) have been shown to produce false positive results. Fentanyl, Ur Negative Negative LAB CHEMISTRY METHOD 03/14/2025 2:05 PM EDT [facility] Oxycodone Screen, Ur Negative Negative LAB CHEMISTRY METHOD 03/14/2025 2:05 PM EDT [facility] Urine Urine specimen obtained by clean catch procedure / Unknown Non-blood Collection / Unknown 03/14/2025 12:01 PM EDT 03/14/2025 12:46 PM EDT Narrative [facility] - 03/14/2025 2:05 PM EDT Assay cutoffs: Amphetamines ? 1000 ng/mL Barbiturates ?200 ng/mL Benzodiazepines ?? 200 ng/mL Cocaine ? 300 ng/mL Fentanyl ?1 ng/mL Opiates ? 300 ng/mL Oxycodone ? 100 ng/mL THC ?50 ng/mL Semi-quantitative assay for screening purposes only. Unconfirmed screening result should not be used for non-medical purposes. *POSITIVE RESULTS ARE AUTOMATICALLY SENT FOR ALTERNATE METHOD CONFIRMATION* Emely Lewis [facility] URINE ORDERABLES Final Re sult [facility] [address] [place] [address], * Culture urine (03/14/2025 12:01 PM EDT) Culture, Urine <10,000 cfu/mL Mixed bacterial bharat 03/15/2025 10:36 AM EDT [facility] Urine Urine specimen obtained by clean catch procedure / Unknown Non-blood Collection / Unknown 03/14/2025 12:01 PM EDT 03/14/2025 12:46 PM EDT [facility] MICROBIOLOGY - GENERAL OR DERABLES Final Result Performing Organization Address [facility]/ZIP Co de Phone Number [facility] [address] [place] [address], * Hepatitis C antibody (03/14/2025 11:29 AM EDT) Hepatitis C Antibody Negative Negative LAB CHEMISTRY METHOD 03/14/2025 2:30 PM EDT [facility] Blood Venous blood specimen / Unknown Venipuncture / Unknown 03/14/2025 11:29 AM EDT 03/14/2025 12:45 PM EDT [facility] BLOOD ORDERABLES Final Re sult Performing Organization Address [facility] de Phone Number [facility] [address] [place] [address], * HIV 1,2 antibody, p24 antigen with reflex to differentiation (03/14/2025 11:29 AM EDT) HIV Combo AB/AG Negative Negative LAB CHEMISTRY METHOD 03/14/2025 2:30 PM EDT [facility] Blood Venous blood specimen / Unknown Venipuncture / Unknown 03/14/2025 11:29 AM EDT 03/14/2025 12:45 PM EDT Narrative [facility] - 03/14/2025 2:30 PM EDT This assay is a 4th generation assay allowing for earlier detection of HIV infection by detecting the presence of the HIV-1 p24 antigen as well as the traditional antibodies to HIV type 1 (including group O) and type 2. ??Use of a 4th generation assay is the current CDC recommendation for HIV screening. [facility] LAB BLOOD ORDERABLES Final Re sult Performing Organization Address [facility]/ZIP Co de Phone Number [facility] [address] [place] [address], [place] [phone] * Hepatitis B surface antigen with reflex to confirmation (03/14/2025 11:29 AM EDT) [facility] Hepatitis B Surface Ag Negative Negative LAB CHEMISTRY METHOD 03/14/2025 2:39 PM EDT [facility] Blood Venous blood specimen / Unknown Venipuncture / Unknown 03/14/2025 11:29 AM EDT 03/14/2025 12:45 PM EDT Narrative [facility] - 03/14/2025 2:39 PM EDT Over the counter supplements containing high doses of biotin may interfere with this assay. ??If interference is suspected, patients shoud be retested after refraining from biotin supplements for 72 hours. [facility] BLOOD ORDERABLES Final Re sult Performing Organization Address City/[facility]/ZIP Co de Phone Number [facility] [address] [place] [address], [place] [phone] * Treponema pallidum antibody with reflex to RPR and particle agglutination (03/14/2025 11:29 AM EDT) [facility] T. Pallidum Antibodies Negative Negative LAB CHEMISTRY METHOD 03/14/2025 4:46 PM EDT [facility] Blood Venous blood specimen / Unknown Venipuncture / Unknown 03/14/2025 11:29 AM EDT 03/14/2025 12:45 PM EDT [facility] BLOOD ORDERABLES Final Re sult [facility] [address] [place] [address], [place] [phone] * (ABNORMAL) CBC auto differential (03/14/2025 11:29 AM EDT) [facility] WBC 12.7(H) 4.8 - 10.8 K/mcL LAB HEMETOLOGY METHOD 03/14/2025 2:28 PM EDT [facility] RBC 4.10 3.80 - 4.80 M/mcL LAB HEMETOLOGY METHOD 03/14/2025 2:28 PM [facility] Hemoglobin 12.8 11.5 - 16.0 g/dL LAB HEMETOLOGY METHOD 03/14/2025 2:28 PM [facility] Hematocrit 37.2 35.0 - 47.0 % LAB HEMETOLOGY METHOD 03/14/2025 2:28 PM [facility] MCV 90.3 79.0 - 98.0 FL LAB HEMETOLOGY METHOD 03/14/2025 2:28 PM [facility] MCH 31.1 27.0 - 32.0 pcg LAB HEMETOLOGY METHOD 03/14/2025 2:28 PM [facility] MCHC 34.4 32.0 - 37.0 g/dL LAB HEMETOLOGY METHOD 03/14/2025 2:28 PM [facility] RDW 12.8 11.0 - 15.0 % LAB HEMETOLOGY METHOD 03/14/2025 2:28 PM [facility] Platelets 318 130 - 400 K/mcL LAB HEMETOLOGY METHOD 03/14/2025 2:28 PM [facility] MPV 11.0 7.0 - 11.0 FL LAB HEMETOLOGY METHOD 03/14/2025 2:28 PM [facility] NRBC 0.0 <1.0 % LAB HEMETOLOGY METHOD 03/14/2025 2:28 PM [facility] NRBC Absolute 0.00 <0.10 K/mcL LAB HEMETOLOGY METHOD 03/14/2025 2:28 PM [facility] Neutrophils Relative 73.6 % LAB HEMETOLOGY METHOD 03/14/2025 2:28 PM [facility] Lymphocytes Relative 15.7 % LAB HEMETOLOGY METHOD 03/14/2025 2:28 PM [facility] Monocytes Relative 8.2 % LAB HEMETOLOGY METHOD 03/14/2025 2:28 PM [facility] Eosinophils Relative 1.7 % LAB HEMETOLOGY METHOD 03/14/2025 2:28 PM [facility] Basophils Relative 0.3 % LAB HEMETOLOGY METHOD 03/14/2025 2:28 PM [facility] Immature Granulocytes Relative 0.5 % LAB HEMETOLOGY METHOD 03/14/2025 2:28 PM [facility] Neutrophils Absolute 9.31(H) 1.50 - 7.00 K/mcL LAB HEMETOLOGY METHOD 03/14/2025 2:28 PM [facility] Lymphocytes Absolute 1.99 1.00 - 5.00 K/mcL LAB HEMETOLOGY METHOD 03/14/2025 2:28 PM [facility] Monocytes Absolute 1.04(H) 0.20 - 1.00 K/mcL LAB HEMETOLOGY METHOD 03/14/2025 2:28 PM [facility] Eosinophils Absolute 0.21 0.00 - 0.50 K/mcL LAB HEMETOLOGY METHOD 03/14/2025 2:28 PM [facility] Basophils Absolute 0.04 0.00 - 0.20 K/mcL LAB HEMETOLOGY METHOD 03/14/2025 2:28 PM [facility] Immature Granulocytes Absolute 0.06(H) 0.00 - 0.03 K/mcL LAB HEMETOLOGY METHOD 03/14/2025 2:28 PM [facility] Blood Venous blood specimen / Unknown Venipuncture / Unknown 03/14/2025 11:29 AM EDT 03/14/2025 12:46 PM EDT [facility]ely [facility] BLOOD ORDERABLES Final Re sult Performing Organization Address [facility]/ZIP Co de Phone Number [facility] [address] [place] [address], [place] [phone] * Rubella antibody IgG (03/14/2025 11:29 AM EDT) Rubella IgG Quant 63.1 >=10.0 I Unit/mL LAB CHEMISTRY METHOD 03/14/2025 2:01 PM EDT [facility] Rubella IgG Antibody Interp Positive Positive LAB CHEMISTRY METHOD 03/14/2025 2:01 PM EDT [facility] Blood Venous blood specimen / Unknown Venipuncture / Unknown 03/14/2025 11:29 AM EDT 03/14/2025 12:45 PM EDT [facility] BLOOD ORDERABLES Final Re sult Performing Organization Address City/[facility]/ZIP Co de Phone Number [facility] [address] [place] [address], [place] [phone] * Type and screen (03/14/2025 11:29 AM EDT) ABO Group O 03/14/2025 1:52 PM EDT [facility] Rh Type Positive 03/14/2025 1:52 PM EDT [facility] Antibody Screen Negative 03/14/2025 1:52 PM EDT [facility] Blood Venous blood specimen / Unknown Venipuncture / Unknown 03/14/2025 11:29 AM EDT 03/14/2025 12:[address] [facility] ORDERABLE S Final Result Performing Organization Address [facility]/ZIP Co de Phone Number [facility] [address] [place] [address], * Varicella zoster antibody IgG (03/14/2025 11:29 AM EDT) Varicella IgG Positive Positive LAB CHEMISTRY METHOD 03/14/2025 2:07 PM EDT [facility] Varicella Zoster IgG 5.88 >=1.00 S/CO LAB CHEMISTRY METHOD 03/14/2025 2:07 PM EDT [facility] Blood Venous blood specimen / Unknown Venipuncture / Unknown 03/14/2025 11:29 AM EDT 03/14/2025 12:45 PM EDT Narrative [facility] - 03/14/2025 2:07 PM EDT Interpretation >= 1.00 S/CO is considered to be consistent with Immunity [facility]ely [facility] BLOOD ORDERABLES Final Re sult Performing Organization Address [facility] Co de Phone Number [facility] [address] [place] [address], * POC , urine manually resulted (03/02/2025 2:17 PM EDT) Urine Urine specimen obtained by clean catch procedure / Unknown 03/02/2025 2:17 PM EDT [facility] POINT OF CARE TEST ENTER/EDIT ORDERABLES Final Result from Last 3 Months Insurance [facility] Care Teams Application Penetration Tester Relationship Specialty Start Date End Date Elyssa Esquivel PA [address] [place] [id number] PCP - General 01/27/25
[2025-04-04 13:08] LABS: Free T4 (Free Thyroxine) 0.83 ng/dL (0.71-1.85); Thyroid Stimulating Hormone 2.27 uIU/mL (0.32-4.0)
[2025-04-04 13:22] LABS: T4 Thyroxine 8.7 ug/dL (4.5-12.0)
[2025-04-05 03:04] LABS: Triiodothyronine T3 Free 2.9 pg/mL (2.3-4.2); Triiodothyronine T3 Total 143 ng/dL (76-181)
== END 2025-04-04 11:21 | disposition home or self-care (01) ==
LOC: HO.LAB 11:20
PROVIDERS: PCP Internal Medicine; Visit Provider Student in an Organized Health Care Education/Training Program
DX: E04.2 Nontoxic multinodular goiter (principal); E03.8 Other specified hypothyroidism
CPT/HCPCS: 36415; 84436; 84439; 84443; 84480; 84481

== ENCOUNTER 2025-04-11 09:03 | Outpatient (AMB) | payer BC, SELFPAY ==
--- NOTE | 2025-04-11 09:16 | MHC.OFFVIS ---
Vital Signs 04/11/25 09:17 Height 5 ft 6 in Weight 195 lb 15.855 oz BMI 31.6 BP 84/50 L Blood Pressure Location Lt brachial Position Sitting Pulse 93 Pulse Source Pulse Oximeter Pulse Oximetry (%) 98 Oxygen Delivery Method Room Air Intake Visit Reasons: 7 wk f/u Intake Note: Patient present today for a 7 week follow up visit. Miller Head Assistant Wet Process Required: No Accompanied by: Self / Same As Patient Allergies haloperidol [From Haldol] Allergy (Unknown, Verified 04/11/25 09:20) Dystonic Reaction metoclopramide [From Reglan] Allergy (Unknown, Verified 04/11/25 09:20) Dystonic Reaction Medication List - Last Reconciled 04/11/25 by Yessi Emery MD levothyroxine 25 mcg PO DAILY [id number] fum-folic [id number] [phone] mg-mcg-mg (One Daily ) pkgs PO HPI Comments Details: 29-year-old female coming in today for follow up of multinodular goiter and subclinical hypothyroidism. HPI Was reporting trouble swallowing and primary care physician palpated the nodule. Ultrasound from October 2024 done at [facility], images not available to be reviewed, however ultrasound report shows a 1 cm right-sided lower pole nodule which is solid, isoechoic, not taller than wide, no echogenic foci, TR 3 category. Another left upper pole 1.3 X 0.7 X 0.8 cm solid, hypoechoic nodule not taller than wide, smooth, no punctate echogenic foci, TR 4 category. Both do not meet criteria for FNA. Labs from that September 2024 reviewed shows normal TSH of 2.4, with normal free T4 1.18. Patient currently denies heat or cold intolerance, diarrhea or constipation, , palpitation, anxiety, mood changes, changes in appearance of eyes or vision changes, tremors. Reports acne and hair loss.?Reports diaphoresis. Reports low energy. Reports acne whihc is new. BP is low. Reports dizziness , low sex drive. Works out a lot, difficulty losing weight. Gained 20 lbs in 6 months , despite working out and eating well. Reports easy bruising. Patient denies any pain on swallowing or difficulty breathing. Winded at home. Reports dysphagia for a couple of years. Big dry bites is difficult. Feels worsened. Feels after singing raspiness. Patient denies any history of childhood neck radiation. Denies having ever used lithium, amiodarone or biotin supplements.Just on a . Occasional valacyclovir once a year PRN for cold sores. Mother has thyroid cancer. Hypothyroidism in paternal side of the family. Been trying to get for the past 3 months. LMP 12/30/24 , periods every month Interval history 02/14/2025 02/08/25: TSH 3.46 6 weeks today 02/14/25 , G1 NICK per patient Oct 06 2026 Has appt with OB 03/02/[address] Extreme fatigue and nausea One vomiting Lack of apetite Interval history 04/11/2025 02/14/2025: TSH 4.10, free T4 0.88, T4 6.5, free T3 3.4, total T3 117 14 weeks today 04/11/25 Reports improved nausea, energy NICK per patient 10/06/2026 Following with Ob at [facility] to [address] [place] [address] Currently on levothyroxine 25 mcg daily started on 02/16/2025 as given TSH should be targeted to less than 2.5 in the 1st trimester Most recent blood work from 04/04/2025 levels good for second trimester of Obesity: not adressed note: Patient is currently 6 weeks , would like to hold off on further management of this for now. BMI 30.7 kg per m2 Current weight 190 lb Despite rigorous exercise, such as heavy lifting and HIIT workouts five to six times a week, and a healthy diet of three meals per day, she struggles with a weight increase of approximately 18 pounds over the last six Physical exam General: sitting comfortably in no acute distress HEENT: normocephalic/atraumatic, Neck: supple, palpable 1 cm right-sided nodule, does have dorsocervical and supraclavicular fat pads Cardiac: normal heart sounds Pulm: normal breath sounds B/L, no added breath sounds Abd: not distended Extremities: no edema, Laboratory Tests 02/08/25 15:04 TSH 3.46 Laboratory Tests 02/14/25 04/04/25 09:43 11:36 TSH 4.10 H 2.27 Free T4 0.88 0.83 Thyroxine (T4) 6.5 8.7 Free T3 3.4 2.9 Total T3 117 143 [facility] Medical History (Updated 04/11/25 @ 09:32 by Yessi Emery MD) Subclinical hypothyroidism Obesity (BMI 30.0-34.9) Multinodular goiter Surgical History Hx of appendectomy Hx of tonsillectomy Family History Mother Thyroid cancer Father High blood pressure High cholesterol Social History Alcohol intake: current Alcohol intake frequency: a few times a month Patient Tobacco Use Status: Never used Tobacco Assessment & Plan Assessment & Plan (1) Multinodular goiter: Code(s): E04.2 - Nontoxic multinodular goiter Category: Medical Plan: 29-year-old female with no personal history of head or neck radiation, with family history of thyroid cancers coming in today for initial evaluation of multinodular goiter. Ultrasound from October 2024 done at [facility], images not available to be reviewed, however ultrasound report shows a 1 cm right-sided lower pole nodule which is solid, isoechoic, not taller than wide, no echogenic foci, TR 3 category. Another left upper pole 1.3 X 0.7 X 0.8 cm solid, hypoechoic nodule not taller than wide, smooth, no punctate echogenic foci, TR 4 category. Both do not meet criteria for FNA. I explained that it is common to have thyroid nodules. About 95% of the time these nodules are benign. However if the nodule is a certain size based on features or suspicious on ultrasound then a fine need aspiration biopsy is recommended. At this time none of her nodules meet criteria for FNA. I discussed with her that we will plan to repeat an ultrasound of the her thyroid in 1 year from the last 1 which would be in October 2025. Given her estimated due date is in October 2025, she would like to wait to get the ultrasound in November 2025. She can follow up with me in December 2025 to discuss results. She is also currently 14 weeks , 1 para 0, NICK October 06 we started her on low-dose levothyroxine 25 mcg daily in February 2025 as TSH was elevated. Most recent labs showed TSH has come down now within good range from labs April 2025. Plan: -ordered TSH TSH, free T4, free T3, total T4 and total T3 levels, to be done in 6 weeks I will be mid May 2025, we will communicate results over the phone -continue levothyroxine 25 mcg daily -follow up in 4 months -repeat thyroid ultrasound ordered for November 2025, - (2) Subclinical hypothyroidism: Code(s): E03.8 - Other specified hypothyroidism Category: Medical Plan: See above (3) : Code(s): Z34.90 - Encounter for supervision of normal , unspecified, unspecified trimester Category: Medical Qualifiers: Weeks of gestation: 14 weeks Qualified Code(s): Z3A.14 - 14 weeks gestation of Plan: See above Plan see above Medications: Refilled levothyroxine 25 mcg PO DAILY 30 tabs 8RF Patient Instructions: Continue levothyroxine 25 mcg daily Do blood mid May 2025 , we will communicate results Follow up in 4 months Coding Level of Care Code Est Pt Level 3 (38487) Diagnoses Multinodular goiter E04.2 Subclinical hypothyroidism E03.8 14 weeks gestation of Z3A.14 Weeks of gestation: 14 weeks
[2025-04-11 09:17] VITALS: BP 84/50; PULSE 93; O2SAT 98; BMI 31.6
--- OUTSIDE RECORDS SUMMARY | 2025-04-11 09:23 | XMS_ITS | Clinical Summary ---
Author Organization [facility] Address [address] [place] [address] Phone Care Team Providers Care Cook Specialty Foreign [employer] Name Role Phone Elyssa Esquivel Primary Care Provider [phone] Allergies Active Allergy Reactions Criticality Noted Date [...] in first trimester 03/14/2025 Overview (03/30/2025): 1. [facility] site: [facility] ([facility]): [address] [place] [address] ([phone]) 2. Delivery site: [facility] 3. Mobile Mommas: 4. Dating criteria: 5. [...] Encounters Date Type Department Care Team Description 04/04/2025 1:00 PM EDT Ancillary Procedure Maternal Medicine [address] [address] Encounter for screening for nuchal translucency; Encounter for screening for malformations; Encounter for supervision of normal first in first trimester; Hypothyroid in , antepartum, second trimester; Obesity affecting in second trimester 03/30/2025 3:00 PM EDT Initial Obstetrics & Gynecology [address] [address] Emely Lewis CNM [place]: 12w6d 03/14/2025 10:00 AM EDT Clinical Support Obstetrics & [address] [id number] Encounter for supervision of normal first in first trimester (Primary Dx); Encounter for screening of mother; Encounter for screening for nuchal translucency; Encounter for screening for malformations; Anxiety and depression 03/02/2025 2:00 PM EDT Office Visit Obstetrics & Gynecology [address] [address] Emely Lewis, LESLI test positive (Primary Dx); Hypothyroid in , antepartum; History of depression from Last 3 Months Immunizations Name Administration Dates Next Due Hepatitis B (Ptxlnbg-R-Ketjy , Recombivax HB-Adult) 19yo and older 11/02/2019,05/25/2019,04/28/2019 [...] Estimated Date of Delivery 03/14/2025 - Present (04/11/2025) 10/06/2025 (set by Kristen Ingram RN on 03/14/2025 based on Last Menstrual Period on 12/30/2024 (Exact Date)) Dating Summary Based On NICK GA Diff Last Menstrual Period on 12/30/2024 (Exact Date) 10/06/2025 Working Alternate NICK Entry 10/06/2025 Same Comment:Date entered prior t o episode creation Vitals Pregravid Weight Height TWG (As of 04/11/2025) Pregrav id BMI 86.6 kg (191 lb) [...] the first trimester and 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 Discussed the benefits of breast feeding and strongly encouraged to consider this. Counseled regarding the diagnosis of anomalies. She was offered a referral to maternal medicine for PANORAMA testing. She declines the serum testing, is netta for NL on next week. the referral. Pt is followed by Endocrine/Diabetes office in [facility] sign DARIN to obtain records for co- management. Prob list updated Okay to change to an otc gummy pnv Start baby asa due to primigravida/ reduce risk of Pre-eclampsia RTO 4 weeks. The patient does not require anesthesia consult. This patient's VTE risk status is low. [place] Depression Scale: In the Past 7 Days [...] harming myself has occurred to me.: Never [place] Depression Scale Total: 12 [place] SCREENING CHARGE (Clinic Only): [id number] Emely Lewis CNM on 03/30/2025 at 4:14 PM EDT 03/30/2025 - 12w6chago - Ramin Valdez [place] Pt here for [...] to the above questions, is this for pentecostal reasons? N/A Do you know what your [...] of estimated date of delivery No Thalassemia (Kazakh, Turkmen, Mediterranean, or background): MCV less than 80 No Neural tube defect (Meningomyelocele, Spina bifida, or Anencephaly) No Congenital heart defect No Down syndrome No Alex-Sachs (Ashkenazi Cheondoism, Cajun, Mongolian Beninese) No Mckayla disease (Ashkenazi Cheondoism) No Familial dysautonomia (Ashkenazi Cheondoism) No Sickle cell disease or trait () No Hemophilia or other blood disorders No Muscular dystrophy No Cystic fibrosis No Audrain's chorea No Intellectual disability and/or autism Yes, [...] above lip. 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 Brittni Molina has also been made aware of the time sensitive nature for this testing to be completed. . The patient now has a gestational age of 10w4d. The patient has agreed that she does want nuchal lucency testing. Ethnicity Based Genetic Testing has been reviewed and the [employer] information sheet has been provided to the [...] For Horizon Carrier Screening, if patient has [employer], [facility] or [employer] insurances: Not Applicable Electronically signed by: Kristen [...] Care Team (Late st Contact Info) Description 04/25/2025 11:00 AM EDT Routine Obstetrics & Gynecology - [facility] [address] [place] [address] nAnamariapeter Kely, CNM [address] [place] [address] 05/23/2025 9:00 AM EDT Ancillary Procedure Maternal Medicine - [address] [address] Health Maintenance Due Date Last Done Comments DTaP,Tdap,and Td Vaccines (1 - Tdap) 2012 COVID-19 Vaccine (2023-2 5 season) 2024 09/22/2021, 12/22/2020, 12/01/2020 Cholesterol Screening (Lipid Panel) 01/28/2025 Depression Screening 01/28/2025 Social Influencers of Health [...] Procedure Name Priority Date/Time Associated Diagnosis Comments US OB LESS 14 WKS SINGLE OR FIRST GESTATION Routine 04/04/2025 1:35 PM EDT Encounter for screening for nuchal translucency Encounter for screening for malformations Hypothyroid in , antepartum, second trimester Obesity affecting in second trimester US OB LESS 14 WKS NUCHAL MEASUREMENT Routine 04/04/2025 1:35 PM EDT Encounter for screening for nuchal translucency Encounter for screening for malformations Encounter for supervision of normal first in first trimester PAP SMEAR Routine 03/30/2025 3:38 PM EDT [...] positive from Last 3 Months Results * US OB Less 14 Wks Nuchal Measurement (04/04/2025 1:35 PM EDT) Anatomical Region Laterality Modality Body Ultrasound 04/04/2025 12:5 8 PM EDT Narrative 04/04/2025 2:38 PM EDT OBSTETRICS REPORT ?(Signed Final 04/04/2025 02:38 pm) PATIENT INFO: ID #: ? [id number] ? : ??[birth year] (29 yrs)(F) Name: ? BRITTNI MOLINA ? Visit Date: 04/04/2025 12:58 pm PERFORMED BY: Attending: ?Mili Silva MD Performed By: ? Willian Webster RDMS Referred By: ?Emely Lewis CNM Ref. Address: ? [address] ? [place], [place] ??[address] Location: ? [facility] SERVICE(S) PROVIDED: US Nuchal Translucency ?75359 US < 14 weeks Abdominal Ultrasound ?30678 INDICATIONS: Obesity complicating , 1st ?O99.211 trimester Hypothyroid in , antepartum ? O99.280 Encounter for screening for nuchal ?? Z36.82 translucency Encounter for screening for ?Z36.3 malformations 13 weeks gestation of ?Z3A.13 TECHNIQUE/SCAN QUALITY: Technique: ?? Transabdominal Scan ? Satisfactory Quality: OB HISTORY: : ?1 ? Term: ?? 0 VITAL SIGNS: Weight (lb) ?? Height ?BMI 195 ? 5'7 ?30.54 EVALUATION: Number Of Fetuses: ? 1 Preg. Location: ?Intrauterine Heart Rate(bpm): ?? 161 Cardiac Activity: ?Observed Presentation: ?Variable Placenta Location: ?Posterior Appearance: ?Grade 0 Cord Insertion: ?Visualized BIOMETRY: GESTATIONAL AGE: LMP: ? 13w 4d ?Date: ??12/30/24 ?NICK: ?? 10/06/25 Best: ?13w 4d ?? Det. By: ??LMP ??(12/30/24) ?NICK: ?? 10/06/25 1ST TRIMESTER GENETIC SONOGRAM SCREENING: CRL: ? 78.72 ??mm ? G.Age: ?? 13w 6d ? NICK: ?? 10/04/25 Nuc Trans: ? 1.7 ??mm STANDARD ANATOMY: Cranium: ?Normal appearance Choroid Plexus: ? Normal appearance Stomach: ?Normal appearance Abdominal Wall: ? Normal appearance Cord Vessels: ? Normal 3-Vessel Cord Bladder: ?Normal appearance Upper Extremities: ?Seen Lower Extremities: ?Seen CERVIX UTERUS ADNEXA: Uterus Size(cm) ? 9.69 ?? x ?? 9.47 ?? x ??8.88 Uterus Vol(ml): ?426.66 Anteverted, anteflexed. Myometrium homogeneous, no lesions identified. Right Ovary Normal in size and appearance. It is found between the uterus and the pelvic sidewall. Left Ovary Normal in size and appearance. It is found between the uterus and the pelvic sidewall. Cul De Sac There is no free fluid in the cul de sac. COMMENTS: Ms. Molina is being seen for first trimester screening for aneuploidy. - Her medical history is significant for hypothyroidism, anxiety and depression. She takes 50 mcg Levothyroxine. - Cell free DNA screening was declined. - Ultrasound findings: The nuchal translucency measurement is < 95th% for the gestational age. - biometry is consistent with dates. ??Assessment of the anatomy is appropriate for the gestational age. There are no ultrasound findings to suggest aneuploidy. - Plan: 1. A detailed ultrasound (BMI) and cervical length screening for risk of have been scheduled. - 2. The patient should be offered second trimester MSAFP only, to assess for risk of an open neural tube defect. Mili Silva MD Electronically Signed Final Report ?? 04/04/2025 02:38 pm Procedure Mili Ulrich MD - 04/04/2025 OBSTETRICS REPORT (Signed Final 04/04/2025 02:38 pm) PATIENT INFO: ID #: [id number] : [birth year] (29 yrs)(F) Name: BRITTNI MOLINA Visit Date: 04/04/2025 12:58 pm PERFORMED BY: Attending: Mili Silva MD Performed By: Willian Webster RDMS Referred By: Emely Lewis [facility] Ref. Address: [address] [place] [address] Location: [facility] SERVICE(S) PROVIDED: US Nuchal Translucency 67855 US < 14 weeks Abdominal Ultrasound 61045 INDICATIONS: Obesity complicating , 1st O99.211 trimester Hypothyroid in , antepartum O99.280 Encounter for screening for nuchal Z36.82 translucency Encounter for screening for Z36.3 malformations 13 weeks gestation of Z3A.13 TECHNIQUE/SCAN QUALITY: Technique: Transabdominal Scan Satisfactory Quality: OB HISTORY: : 1 Term: 0 VITAL SIGNS: Weight (lb) Height BMI 195 5'7 30.54 EVALUATION: Number Of Fetuses: 1 Preg. Location: Intrauterine Heart Rate(bpm): 161 Cardiac Activity: Observed Presentation: Variable Placenta Location: Posterior Appearance: Grade 0 Cord Insertion: Visualized BIOMETRY: GESTATIONAL AGE: LMP: 13w 4d Date: 12/30/24 NICK: 10/06/25 Best: 13w 4d Det. By: LMP (12/30/24) NICK: 10/06/25 1ST TRIMESTER GENETIC SONOGRAM SCREENING: CRL: 78.72 mm G.Age: 13w 6d NICK: 10/04/25 Nuc Trans: 1.7 mm STANDARD ANATOMY: Cranium: Normal appearance Choroid Plexus: Normal appearance Stomach: Normal appearance Abdominal Wall: Normal appearance Cord Vessels: Normal 3-Vessel Cord Bladder: Normal appearance Upper Extremities: Seen Lower Extremities: Seen CERVIX UTERUS ADNEXA: Uterus Size(cm) 9.69 x 9.47 x 8.88 Uterus Vol(ml): 426.66 Anteverted, anteflexed. Myometrium homogeneous, no lesions identified. Right Ovary Normal in size and appearance. It is found between the uterus and the pelvic sidewall. Left Ovary Normal in size and appearance. It is found between the uterus and the pelvic sidewall. Cul De Sac There is no free fluid in the cul de sac. COMMENTS: Ms. Molina is being seen for first trimester screening for aneuploidy. - Her medical history is significant for hypothyroidism, anxiety and depression. She takes 50 mcg Levothyroxine. - Cell free DNA screening was declined. - Ultrasound findings: The nuchal translucency measurement is < 95th% for the gestational age. - biometry is consistent with dates. Assessment of the anatomy is appropriate for the gestational age. There are no ultrasound findings to suggest aneuploidy. - Plan: 1. A detailed ultrasound (BMI) and cervical length screening for risk of have been scheduled. - 2. The patient should be offered second trimester MSAFP only, to assess for risk of an open neural tube defect. Mili Silva MD Electronically Signed Final Report 04/04/2025 02:38 pm us Emely Lewis CNM IMG OB US PROCEDURES Final Re sult * US OB Less 14 Wks Single or First Gestation (04/04/2025 1:35 PM EDT) Anatomical Region Laterality Modality Body Ultrasound 04/04/2025 12:5 8 PM EDT Narrative 04/04/2025 2:38 PM EDT OBSTETRICS REPORT ?(Signed Final 04/04/2025 02:38 pm) PATIENT INFO: ID #: ? [id number] ? : ??[birth year] (29 yrs)(F) Name: ? BRITTNI JESSE ? Visit Date: 04/04/2025 12:58 pm PERFORMED BY: Attending: ?Mili Silva MD Performed By: ? Willian Webster RDMS Referred By: ?Emely Lewis CNM Ref. Address: ? [address] ? [place], [place] ??[address] Location: ? [facility] SERVICE(S) PROVIDED: US Nuchal Translucency ?58144 US < 14 weeks Abdominal Ultrasound ?49476 INDICATIONS: Obesity complicating , 1st ?O99.211 trimester Hypothyroid in , antepartum ? O99.280 Encounter for screening for nuchal ?? Z36.82 translucency Encounter for screening for ?Z36.3 malformations 13 weeks gestation of ?Z3A.13 TECHNIQUE/SCAN QUALITY: Technique: ?? Transabdominal Scan ? Satisfactory Quality: OB HISTORY: : ?1 ? Term: ?? 0 VITAL SIGNS: Weight (lb) ?? Height ?BMI 195 ? 5'7 ?30.54 EVALUATION: Number Of Fetuses: ? 1 Preg. Location: ?Intrauterine Heart Rate(bpm): ?? 161 Cardiac Activity: ?Observed Presentation: ?Variable Placenta Location: ?Posterior Appearance: ?Grade 0 Cord Insertion: ?Visualized BIOMETRY: GESTATIONAL AGE: LMP: ? 13w 4d ?Date: ??12/30/24 ?NICK: ?? 10/06/25 Best: ?13w 4d ?? Det. By: ??LMP ??(12/30/24) ?NICK: ?? 10/06/25 1ST TRIMESTER GENETIC SONOGRAM SCREENING: CRL: ? 78.72 ??mm ? G.Age: ?? 13w 6d ? NICK: ?? 10/04/25 Nuc Trans: ? 1.7 ??mm STANDARD ANATOMY: Cranium: ?Normal appearance Choroid Plexus: ? Normal appearance Stomach: ?Normal appearance Abdominal Wall: ? Normal appearance Cord Vessels: ? Normal 3-Vessel Cord Bladder: ?Normal appearance Upper Extremities: ?Seen Lower Extremities: ?Seen CERVIX UTERUS ADNEXA: Uterus Size(cm) ? 9.69 ?? x ?? 9.47 ?? x ??8.88 Uterus Vol(ml): ?426.66 Anteverted, anteflexed. Myometrium homogeneous, no lesions identified. Right Ovary Normal in size and appearance. It is found between the uterus and the pelvic sidewall. Left Ovary Normal in size and appearance. It is found between the uterus and the pelvic sidewall. Cul De Sac There is no free fluid in the cul de sac. COMMENTS: Ms. Molina is being seen for first trimester screening for aneuploidy. - Her medical history is significant for hypothyroidism, anxiety and depression. She takes 50 mcg Levothyroxine. - Cell free DNA screening was declined. - Ultrasound findings: The nuchal translucency measurement is < 95th% for the gestational age. - biometry is consistent with dates. ??Assessment of the anatomy is appropriate for the gestational age. There are no ultrasound findings to suggest aneuploidy. - Plan: 1. A detailed ultrasound (BMI) and cervical length screening for risk of have been scheduled. - 2. The patient should be offered second trimester MSAFP only, to assess for risk of an open neural tube defect. Mili Silva MD Electronically Signed Final Report ?? 04/04/2025 02:38 pm Procedure Note Mili Silva MD - 04/04/2025 OBSTETRICS REPORT (Signed Final 04/04/2025 02:38 pm) PATIENT INFO: ID #: [id number] : [birth year] (29 yrs)(F) Name: BRITTNI MOLINA Visit Date: 04/04/2025 12:58 pm PERFORMED BY: Attending: Mili Silva MD Performed By: Willian Webster RDMS Referred By: Emely Lewis [facility] Ref. Address: [address] [place] [address] Location: [facility] SERVICE(S) PROVIDED: US Nuchal Translucency 73600 US < 14 weeks Abdominal Ultrasound 48862 INDICATIONS: Obesity complicating , 1st O99.211 trimester Hypothyroid in , antepartum O99.280 Encounter for screening for nuchal Z36.82 translucency Encounter for screening for Z36.3 malformations 13 weeks gestation of Z3A.13 TECHNIQUE/SCAN QUALITY: Technique: Transabdominal Scan Satisfactory Quality: OB HISTORY: : 1 Term: 0 VITAL SIGNS: Weight (lb) Height BMI 195 5'7 30.54 EVALUATION: Number Of Fetuses: 1 Preg. Location: Intrauterine Heart Rate(bpm): 161 Cardiac Activity: Observed Presentation: Variable Placenta Location: Posterior Appearance: Grade 0 Cord Insertion: Visualized BIOMETRY: GESTATIONAL AGE: LMP: 13w 4d Date: 12/30/24 NICK: 10/06/25 Best: 13w 4d Det. By: LMP (12/30/24) NICK: 10/06/25 1ST TRIMESTER GENETIC SONOGRAM SCREENING: CRL: 78.72 mm G.Age: 13w 6d NICK: 10/04/25 Nuc Trans: 1.7 mm STANDARD ANATOMY: Cranium: Normal appearance Choroid Plexus: Normal appearance Stomach: Normal appearance Abdominal Wall: Normal appearance Cord Vessels: Normal 3-Vessel Cord Bladder: Normal appearance Upper Extremities: Seen Lower Extremities: Seen CERVIX UTERUS ADNEXA: Uterus Size(cm) 9.69 x 9.47 x 8.88 Uterus Vol(ml): 426.66 Anteverted, anteflexed. Myometrium homogeneous, no lesions identified. Right Ovary Normal in size and appearance. It is found between the uterus and the pelvic sidewall. Left Ovary Normal in size and appearance. It is found between the uterus and the pelvic sidewall. Cul De Sac There is no free fluid in the cul de sac. COMMENTS: Ms. Molina is being seen for first trimester screening for aneuploidy. - Her medical history is significant for hypothyroidism, anxiety and depression. She takes 50 mcg Levothyroxine. - Cell free DNA screening was declined. - Ultrasound findings: The nuchal translucency measurement is < 95th% for the gestational age. - biometry is consistent with dates. Assessment of the anatomy is appropriate for the gestational age. There are no ultrasound findings to suggest aneuploidy. - Plan: 1. A detailed ultrasound (BMI) and cervical length screening for risk of have been scheduled. - 2. The patient should be offered second trimester MSAFP only, to assess for risk of an open neural tube defect. Mili Silva MD Electronically Signed Final Report 04/04/2025 02:38 pm Emely Lewis CNM IMG OB US PROCEDURES Final Re sult * HPV with reflex genotype (03/30/2025 3:38 PM EDT) HPV Negative Negative LAB MICROBIOLOGY METHOD 04/01/2025 9:50 AM EDT [facility] Brushing/Spatula Cervix uteri structure / Unknown 03/30/2025 3:38 PM EDT 03/31/2025 6:17 AM EDT Emely Lewis CNM LAB MOLECULAR DIAGNOSTICS ORD ERABLES Final Result [facility] [address] [place] [address], [place] [phone] * Pap smear (03/30/2025 3:38 PM EDT) Interpretation Negative for intraepithelial lesion or malignancy 03/31/2025 4:36 PM EDT [facility] General Categorization Negative 03/31/2025 4:36 PM EDT [facility] Specimen Adequacy Satisfactory for evaluation, endocervical/yu sformation zone component absent 03/31/2025 4:36 PM EDT [facility] Pap Methodology Liquid Based Pap Test 03/31/2025 4:36 PM EDT [facility] Disclaimer The Pap test is a screening test which carries an inherent false negative rate. These test results should be correlated with the patient's clinical findings and history. This Pap test was processed using an automated screening system. Technical cytopathology services provided by [facility], at [address] [place] [address] (CLIA # [id number]/Alexandre Brown MD, Shareholder.) 03/31/2025 4:36 PM EDT [facility] Console Pap Interpretation Reported 03/31/2025 4:36 PM EDT [facility] Brushing/Spatula Cervix uteri structure / Unknown 03/30/2025 3:38 PM EDT 03/31/2025 6:17 AM EDT Emely Lewis [facility] CYTOLOGY ORDERABLES Final Result [facility] [address] [place] [address], * Drug abuse screen expanded with reflex confirmation, urine (03/14/2025 12:01 PM EDT) Amphetamine Screen, Ur Negative Negative LAB CHEMISTRY METHOD 03/14/2025 2:05 PM EDT [facility] Comment:Certain OTC medicati ons containing ephedrine, phenylephrine, pseudoephedrine and phenylpropanolamine can cause false positive results. Barbiturate Screen, Ur Negative Negative LAB CHEMISTRY METHOD 03/14/2025 2:05 PM EDT [facility] Benzodiazepine Screen, Ur Negative Negative LAB CHEMISTRY METHOD 03/14/2025 2:05 PM EDT [facility] Cocaine Screen, Ur Negative Negative LAB CHEMISTRY METHOD 03/14/2025 2:05 PM EDT [facility] Opiate Screen, Ur Negative Negative LAB CHEMISTRY METHOD 03/14/2025 2:05 PM EDT [facility] Cannabinoid (THC) Screen, Ur Negative Negative LAB CHEMISTRY METHOD 03/14/2025 2:05 PM EDT [facility] Comment:Specimens from patie nts taking pantoprazole sodium (Protonix) have been shown to produce false positive results. Fentanyl, Ur Negative Negative LAB CHEMISTRY METHOD 03/14/2025 2:05 PM EDT [facility] Oxycodone Screen, Ur Negative Negative LAB CHEMISTRY METHOD 03/14/2025 2:05 PM EDT [facility] Urine Urine specimen obtained by clean catch procedure / Unknown Non-blood Collection / Unknown 03/14/2025 12:01 PM EDT 03/14/2025 12:46 PM EDT Narrative [facility] - 03/14/2025 2:05 PM EDT Assay cutoffs: Amphetamines ? 1000 ng/mL Barbiturates ?200 ng/mL Benzodiazepines ?? 200 ng/mL Cocaine ? 300 ng/mL Fentanyl ?1 ng/mL Opiates ? 300 ng/mL Oxycodone ? 100 ng/mL THC ?50 ng/mL Semi-quantitative assay for screening purposes only. Unconfirmed screening result should not be used for non-medical purposes. *POSITIVE RESULTS ARE AUTOMATICALLY SENT FOR ALTERNATE METHOD CONFIRMATION* us Emely Lewis [facility] URINE ORDERABLES Final Re sult [facility] [address] [place] [address], * Culture urine (03/14/2025 12:01 PM EDT) Culture, Urine <10,000 cfu/mL Mixed bacterial bharat 03/15/2025 10:36 AM EDT [facility] Urine Urine specimen obtained by clean catch procedure / Unknown Non-blood Collection / Unknown 03/14/2025 12:01 PM EDT 03/14/2025 12:46 PM EDT Emely Lewis [facility] MICROBIOLOGY - GENERAL OR DERABLES Final Result Performing Organization Address [facility]/ZIP Co de Phone Number [facility] [address] [place] [address], [place] [phone] * Hepatitis C antibody (03/14/2025 11:29 AM EDT) Hepatitis C Antibody Negative Negative LAB CHEMISTRY METHOD 03/14/2025 2:30 PM EDT [facility] Blood Venous blood specimen / Unknown Venipuncture / Unknown 03/14/2025 11:29 AM EDT 03/14/2025 12:45 PM EDT [facility] BLOOD ORDERABLES Final Re sult Performing Organization Address City/[facility]/ZIP Co de Phone Number [facility] [address] [place] [address], [place] [phone] * HIV 1,2 antibody, p24 antigen with reflex to differentiation (03/14/2025 11:29 AM EDT) HIV Combo AB/AG Negative Negative LAB CHEMISTRY METHOD 03/14/2025 2:30 PM EDT [facility] Blood Venous blood specimen / Unknown Venipuncture / Unknown 03/14/2025 11:29 AM EDT 03/14/2025 12:45 PM EDT Narrative [facility] - 03/14/2025 2:30 PM EDT This assay is a 4th generation assay allowing for earlier detection of HIV infection by detecting the presence of the HIV-1 p24 antigen as well as the traditional antibodies to HIV type 1 (including group O) and type 2. ??Use of a 4th generation assay is the current CDC recommendation for HIV screening. [facility] BLOOD ORDERABLES Final Re sult Performing Organization Address City/[facility]/ZIP Co de Phone Number [facility] [address] [place] [address], [place] [phone] * Hepatitis B surface antigen with reflex to confirmation (03/14/2025 11:29 AM EDT) Hepatitis B Surface Ag Negative Negative LAB CHEMISTRY METHOD 03/14/2025 2:39 PM EDT [facility] Blood Venous blood specimen / Unknown Venipuncture / Unknown 03/14/2025 11:29 AM EDT 03/14/2025 12:45 PM EDT Narrative [facility] - 03/14/2025 2:39 PM EDT Over the counter supplements containing high doses of biotin may interfere with this assay. ??If interference is suspected, patients shoud be retested after refraining from biotin supplements for 72 hours. [facility] BLOOD ORDERABLES Final Re sult Performing Organization Address [facility]/ZIP Co de Phone Number [facility] [address] [place] [address], [place] [phone] * Treponema pallidum antibody with reflex to RPR and particle agglutination (03/14/2025 11:29 AM EDT) [facility] T. Pallidum Antibodies Negative Negative LAB CHEMISTRY METHOD 03/14/2025 4:46 PM EDT [facility] Blood Venous blood specimen / Unknown Venipuncture / Unknown 03/14/2025 11:29 AM EDT 03/14/2025 12:45 PM EDT [facility] LAB BLOOD ORDERABLES Final Re sult [facility] [address] [place] [address], * (ABNORMAL) CBC auto differential (03/14/2025 11:29 AM EDT) WBC 12.7(H) 4.8 - 10.8 K/mcL LAB HEMETOLOGY METHOD 03/14/2025 2:28 PM EDT [facility] RBC 4.10 3.80 - 4.80 M/mcL LAB HEMETOLOGY METHOD 03/14/2025 2:28 PM EDT [facility] Hemoglobin 12.8 11.5 - 16.0 g/dL LAB HEMETOLOGY METHOD 03/14/2025 2:28 PM EDT [facility] Hematocrit 37.2 35.0 - 47.0 % LAB HEMETOLOGY METHOD 03/14/2025 2:28 PM EDT [facility] MCV 90.3 79.0 - 98.0 FL LAB HEMETOLOGY METHOD 03/14/2025 2:28 PM EDT [facility] MCH 31.1 27.0 - 32.0 pcg LAB HEMETOLOGY METHOD 03/14/2025 2:28 PM EDT [facility] MCHC 34.4 32.0 - 37.0 g/dL LAB HEMETOLOGY METHOD 03/14/2025 2:28 PM EDT [facility] RDW 12.8 11.0 - 15.0 % LAB HEMETOLOGY METHOD 03/14/2025 2:28 PM EDT [facility] Platelets 318 130 - 400 K/mcL LAB HEMETOLOGY METHOD 03/14/2025 2:28 PM EDT [facility] MPV 11.0 7.0 - 11.0 FL LAB HEMETOLOGY METHOD 03/14/2025 2:28 PM EDT [facility] NRBC 0.0 <1.0 % LAB HEMETOLOGY METHOD 03/14/2025 2:28 PM EDT [facility] NRBC Absolute 0.00 <0.10 K/mcL LAB HEMETOLOGY METHOD 03/14/2025 2:[facility] Neutrophils Relative 73.6 % LAB HEMETOLOGY METHOD 03/14/2025 2:28 [facility] Lymphocytes Relative 15.7 % LAB HEMETOLOGY METHOD 03/14/2025 2:28 PM [facility] Monocytes Relative 8.2 % LAB HEMETOLOGY METHOD 03/14/2025 2:28 PM [facility] Eosinophils Relative 1.7 % LAB HEMETOLOGY METHOD 03/14/2025 2:28 PM [facility] Basophils Relative 0.3 % LAB HEMETOLOGY METHOD 03/14/2025 2:28 PM [facility] Immature Granulocytes Relative 0.5 % LAB HEMETOLOGY METHOD 03/14/2025 2:28 PM [facility] Neutrophils Absolute 9.31(H) 1.50 - 7.00 K/mcL LAB HEMETOLOGY METHOD 03/14/2025 2:28 PM [facility] Lymphocytes Absolute 1.99 1.00 - 5.00 K/mcL LAB HEMETOLOGY METHOD 03/14/2025 2:28 PM [facility] Monocytes Absolute 1.04(H) 0.20 - 1.00 K/mcL LAB HEMETOLOGY METHOD 03/14/2025 2:28 [facility] Eosinophils Absolute 0.21 0.00 - 0.50 K/mcL LAB HEMETOLOGY METHOD 03/14/2025 2:28 PM [facility] Basophils Absolute 0.04 0.00 - 0.20 K/mcL LAB HEMETOLOGY METHOD 03/14/2025 2:28 PM [facility] Immature Granulocytes Absolute 0.06(H) 0.00 - 0.03 K/mcL LAB HEMETOLOGY METHOD 03/14/2025 2:28 PM EDT [facility] Blood Venous blood specimen / Unknown Venipuncture / Unknown 03/14/2025 11:29 AM EDT 03/14/2025 12:46 PM EDT [facility] BLOOD ORDERABLES Final Re sult Performing Organization Address City/[facility]/ZIP Co de Phone Number [facility] [address] [place] [address], [place] [phone] * Rubella antibody IgG (03/14/2025 11:29 AM EDT) Rubella IgG Quant 63.1 >=10.0 I Unit/mL LAB CHEMISTRY METHOD 03/14/2025 2:01 PM EDT [facility] Rubella IgG Antibody Interp Positive Positive LAB CHEMISTRY METHOD 03/14/2025 2:01 PM EDT [facility] Blood Venous blood specimen / Unknown Venipuncture / Unknown 03/14/2025 11:29 AM EDT 03/14/2025 12:45 PM EDT [facility] BLOOD ORDERABLES Final Re sult Performing Organization Address [facility]/ZIP Co de Phone Number [facility] [address] [place] [address], [place] [phone] * Type and screen (03/14/2025 11:29 AM EDT) ABO Group O 03/14/2025 1:52 PM EDT [facility] Rh Type Positive 03/14/2025 1:52 PM EDT [facility] Antibody Screen Negative 03/14/2025 1:52 PM EDT [facility] Blood Venous blood specimen / Unknown Venipuncture / Unknown 03/14/2025 11:29 AM EDT 03/14/2025 12:43 PM EDT [facility] BLOOD BANK TEST ORDERABLE S Final Result Performing Organization Address [facility] de Phone Number [facility] [address] [place] [address], * Varicella zoster antibody IgG (03/14/2025 11:29 AM EDT) Varicella IgG Positive Positive LAB CHEMISTRY METHOD 03/14/2025 2:07 PM EDT [facility] Varicella Zoster IgG 5.88 >=1.00 S/CO LAB CHEMISTRY METHOD 03/14/2025 2:07 PM EDT [facility] Blood Venous blood specimen / Unknown Venipuncture / Unknown 03/14/2025 11:29 AM EDT 03/14/2025 12:45 PM EDT Narrative [facility] - 03/14/2025 2:07 PM EDT Interpretation >= 1.00 S/CO is considered to be consistent with Immunity [facility] BLOOD ORDERABLES Final Re sult Performing Organization Address [facility] de Phone Number [facility] [address] [place] [address], [place] [phone] * POC , urine manually resulted (03/02/2025 2:17 PM EDT) Urine Urine specimen obtained by clean catch procedure / Unknown 03/02/2025 2:17 PM EDT [facility] POINT OF CARE TEST ENTER/EDIT ORDERABLES Final Result from Last 3 Months Insurance [facility] Care Teams Cook Specialty Foreign Food Relationship Specialty Start Date End Date Elyssa Esquivel PA [address] [place] [phone] PCP - General 01/27/25
== END 2025-04-11 09:28 | disposition home or self-care (01) ==
LOC: HO.ENCR 09:03
PROVIDERS: PCP Obstetrics & Gynecology; Visit Provider Student in an Organized Health Care Education/Training Program
DX: E04.2 Nontoxic multinodular goiter (principal); E03.8 Other specified hypothyroidism; Z3A.14 14 weeks gestation of pregnancy
CPT/HCPCS: 99213

== ENCOUNTER 2025-05-16 11:05 | Outpatient (REF) | payer BC, SELFPAY ==
--- OUTSIDE RECORDS SUMMARY | 2025-05-16 12:11 | XMS_ITS | Clinical Summary ---
Author Organization [facility] Address [address] [place] [phone] Phone Care Team Providers Care Claim Attorney Name Role Phone Elyssa Esquivel Primary Care Provider [phone] Allergies Active Allergy Reactions Criticality Noted Date [...] Date Hypothyroid in , antepartum 03/30/2025 Overview (05/02/2025): 03/31/2025 labs from outside show: 02/14/2025 - TSH 4.10 ( H), free t4 0.88 ( NL), t4 6.5 ( nl), TPO Ab 387 (H) [nl is < 9] 04/04/2025 - TSH- 2.27, T4 8.7 Make sure to determine if ALWAYS hypo [...] in first trimester 03/14/2025 Overview (03/30/2025): 1. [facility] site: [facility] ([facility] Building): [address] [place] [address] ([phone]) 2. Delivery site: [facility] 3. Mobile Mommas: 4. Dating criteria: [...] Diagnosed Date Resolved Date Contact dermatitis 03/24/2025 Diarrhea 03/24/2025 03/30/2025 Rash 03/24/2025 03/30/2025 Encounters Date Type Department Care Team Description 05/02/2025 10:15 AM EDT Routine Obstetrics & Gynecology - [address] [phone] Kely Abraham CNM Hypothyroid in , antepartum (Primary Dx) 04/29/2025 Telephone Obstetrics & Gynecology [address] [phone] Kely Abraham CNM 04/04/2025 1:00 PM EDT Ancillary Procedure Maternal Medicine [address] [phone] Encounter for screening for nuchal translucency; Encounter for screening for malformations; Encounter for supervision of normal first in first trimester; Hypothyroid in , antepartum, second trimester; Obesity affecting in second trimester 03/30/2025 3:00 PM EDT Initial Obstetrics & Gynecology - [address] [phone] Emely Lewis CNM GA: 12w6d 03/14/2025 10:00 AM EDT Clinical Support Obstetrics & Gynecology [address] [phone] Encounter for supervision of normal first in first trimester (Primary Dx); Encounter for screening of mother; Encounter for screening for nuchal translucency; Encounter for screening for malformations; Anxiety and depression 03/02/2025 2:00 PM EDT Office Visit Obstetrics & Gynecology [address] [phone] Emely Lewis CNM test positive (Primary Dx); Hypothyroid in , antepartum; History of depression from Last 3 Months Immunizations Name Administration Dates Next Due Hepatitis B (Oqtvgur-U-Twsys , Recombivax HB-Adult) 19yo and older 11/02/2019,05/25/2019,04/28/2019 [...] Estimated Date of Delivery 03/14/2025 - Present (05/16/2025) 10/06/2025 (set by Kristen Ingram RN on 03/14/2025 based on Last Menstrual Period on 12/30/2024 (Exact Date)) Dating Summary Based On NICK GA Diff Last Menstrual Period on 12/30/2024 (Exact Date) 10/06/2025 Working Alternate NICK Entry 10/06/2025 Same Comment:Date entered prior t o episode creation Vitals Pregravid Weight Height TWG (As of 05/16/2025) Pregrav id BMI 86.6 kg (191 lb) 1.702 m (67 ) 2.858 kg (6 lb 4.8 oz) 29.91 Notes Progress Notes - Routine Pre - 05/02/2025 - GA:17w4d 05/02/2025 - 17w4d - Kely Abraham CNM OB Visit: Vitals BP: 105/78 (p 96) Weight: 89.5 kg (197 lb 4.8 oz) 29 y.o. old female at 17w4d. Doing well. no FM. No LOF/VB/cramping. Her only new concern is taking baby ASA. I explain reason for daily ASA is preventative for preeclampsia. She verbalized understanding and will begin ASA today. Otherwise healthy . Her BP is reviewed and is Normal. Aneuploidy screening reviewed; it is Declined. MSAFP deferred by patient. She does not require a urine drug screen. Signs and symptoms of labor reviewed including reasons to call triage. Problem List reviewed and updated. RTO 4 weeks. TSH-2.27, T4- 8.7 on 04/04/25 . She is seeing an associate web developer on levothyroxine 25 mcg po daily. Scheduled for FAS. Kely Abraham CNM on 05/02/2025 at 10:26 AM EDT Progress Notes - Initial Pre kade - [...] the first trimester and how to contact antisubmarine weapons officer provider. Discussed the benefits of breast feeding and strongly encouraged to consider this. Counseled regarding the diagnosis of anomalies. She was offered a referral to maternal medicine for PANORAMA testing. She declines the serum testing, is netta for NL on next week. the referral. Pt is followed by Endocrine/Diabetes office in [facility] sign [facility] to obtain records for co- management. Prob list updated Okay to change to an otc gummy pnv Start baby asa due to primigravida/ reduce risk of Pre-eclampsia RTO 4 weeks. The patient does not require anesthesia consult. This patient's VTE risk status is low. [place] Depression Scale: In the Past 7 Days [...] harming myself has occurred to me.: Never [place] Depression Scale Total: 12 [place] SCREENING CHARGE (Clinic Only): [id number] Emely Lewis CNM on 03/30/2025 at 4:14 [...] to the above questions, is this for zoroastrian reasons? N/A Do you know what your [...] of estimated date of delivery No Thalassemia (Tajik, American, Mediterranean, or background): MCV less than 80 No Neural tube defect (Meningomyelocele, Spina bifida, or Anencephaly) No Congenital heart defect No Down syndrome No Alex-Sachs (Ashkenazi Baptism, Cajun, Ethiopian Auglaize) No Mckayla disease (Ashkenazi Baptism) No Familial dysautonomia (Ashkenazi Baptism) No Sickle cell disease or trait () No Hemophilia or other blood disorders No Muscular dystrophy No Cystic fibrosis No Marlboro's chorea No Intellectual disability and/or autism Yes, [...] lip. Pt reports recurrent cold sores Brittni Hernadezmiguel has been instructed on the following: random urine drug screening policy and an initial urine drug screen has been ordered., She has been counseled regarding avoiding hazards, litter boxes, smoking, drug and alcohol use during Brittni Jesse has also been informed of the ostrich farmer provider recommendation for first trimester nuchal lucency testing to be performed during her . Brittni Molina has also been made aware of the time sensitive nature for this testing to be completed. . The patient now has a gestational age of 10w4d. The patient has agreed that she does want nuchal lucency testing. Ethnicity Based Genetic Testing has been reviewed and the [employer] information sheet has been provided to the [...] For Horizon Carrier Screening, if patient has [employer] or [employer] insurances: Not Applicable Electronically signed by: Kristen Ingram RN 03/14/25 10:38 AM EDT Last Filed Vital Signs Vital Sign Reading Time Taken Comments Blood Pressure 105/78 05/02/2025 10:03 AM EDT p 96 Pulse 77 03/14/2025 10:33 AM EDT Temperature - - Respiratory Rate - - Oxygen Saturation - - Inhaled Oxygen Concentration - - Weight 89.5 kg (197 lb 4.8 oz) 05/02/2025 10:03 AM EDT Height 170.2 cm (5' 7 ) 03/14/2025 10:33 AM EDT Body Mass Index 30.9 03/14/2025 10:33 AM EDT Plan of Treatment Upcoming Encounters Date Type Department Care Team (Late st Contact Info) Description 05/23/2025 9:00 AM EDT Ancillary Procedure Maternal Medicine [address] [phone] 05/26/2025 10:00 AM EDT Routine Obstetrics & Gynecology - [address] [phone] Emely Lewis, CNM [address] [place] [address] 06/23/2025 2:00 PM EDT Routine Obstetrics & Gynecology [address] [phone] Zaid Saenz, BERYL [address] [place] [address] Health Maintenance Due Date Last Done Comments DTaP,Tdap,and Td Vaccines (1 - Tdap) 2012 COVID-19 Vaccine ( - 2023-2 5 season) 2024 09/22/2021, 12/22/2020, 12/01/2020 Cholesterol Screening (Lipid Panel) 01/28/2025 Depression Screening 01/28/2025 Social Influencers of Health Screening 01/28/2025 Influenza Vaccine (#1) 2025 , 07/07/2020, 07/26/2019 Cervical Cancer Screening: HPV 03/30/2030 [...] 5 Years) and At-Risk Patients (6 to 49 Years) Aged Out No longer eligible b [...] Narrative 04/04/2025 2:38 PM EDT OBSTETRICS REPORT (Signed Final 04/04/2025 02:38 pm) PATIENT INFO: ID #: [id number] : [birth year] (29 yrs)(F) Name: BRITTNI MOLINA Visit Date: 04/04/2025 12:58 pm PERFORMED BY: Attending: Mili Silva MD Performed By: Willian Webster RDMS Referred By: Emely Lewis [facility] Ref. Address: [address] [place] [address] Location: [facility]) SERVICE(S) PROVIDED: US Nuchal Translucency 34208 US < 14 weeks Abdominal Ultrasound 713[address] INDICATIONS: Obesity complicating , 1st O99.211 trimester [...] Electronically Signed Final Report 04/04/2025 02:38 pm Procedure Note Mili Silva MD - 04/04/2025 OBSTETRICS REPORT (Signed Final 04/04/2025 02:38 pm) PATIENT INFO: ID #: [id number] : [birth year] (29 yrs)(F) Name: BRITTNI MOLINA Visit Date: 04/04/2025 12:58 pm PERFORMED BY: Attending: Mili Silva MD Performed By: Willian Webster RDMS Referred By: Emely Lewis [facility] Ref. Address: [address] [place] [address] Location: [facility]) SERVICE(S) PROVIDED: US Nuchal Translucency 91807 US < 14 weeks Abdominal Ultrasound 41890 INDICATIONS: Obesity complicating , 1st O99.211 trimester [...] Narrative 04/04/2025 2:38 PM EDT OBSTETRICS REPORT (Signed Final 04/04/2025 02:38 pm) PATIENT INFO: ID #: [id number] : [birth year] (29 yrs)(F) Name: BRITTNI MOLINA Visit Date: 04/04/2025 12:58 pm PERFORMED BY: Attending: Mili Silva MD Performed By: Willian Webster RDMS Referred By: Emely Lewis [facility] Ref. Address: [address] [place] [address] Location: [facility]) SERVICE(S) PROVIDED: US Nuchal Translucency 17825 US < 14 weeks Abdominal Ultrasound 78188 INDICATIONS: Obesity complicating , 1st O99.211 trimester [...] Electronically Signed Final Report 04/04/2025 02:38 pm Procedure Note Mili Silva MD - 04/04/2025 OBSTETRICS REPORT (Signed Final 04/04/2025 02:38 pm) PATIENT INFO: ID #: [id number] : [birth year] (29 yrs)(F) Name: BRITTNI MOLINA Visit Date: 04/04/2025 12:58 pm PERFORMED BY: Attending: Mili Silva MD Performed By: Willian Webster RDMS Referred By: Emely CORDOBA Ref. Address: [address] [place] [address] Location: [facility]) SERVICE(S) PROVIDED: US Nuchal Translucency 44000 US < 14 weeks Abdominal Ultrasound 47801 INDICATIONS: Obesity complicating , 1st O99.211 trimester [...] LAB MICROBIOLOGY METHOD 04/01/2025 9:50 AM EDT [facility] Brushing/Spatula Cervix uteri structure / Unknown 03/30/2025 3:38 PM EDT 03/31/2025 6:17 AM EDT Emely [facility] LAB MOLECULAR DIAGNOSTICS ORD ERABLES Final Result [facility] [address] [place] [address], * Pap smear (03/30/2025 3:38 PM EDT) Interpretation Negative for intraepithelial lesion or malignancy 03/31/2025 4:36 PM EDT [facility] General Categorization Negative 03/31/2025 4:36 PM EDT [facility] Specimen Adequacy Satisfactory for evaluation, endocervical/yu sformation zone component absent 03/31/2025 4:36 PM EDT [facility] Pap Methodology Liquid Based Pap Test 03/31/2025 4:36 PM EDT [facility] Disclaimer The Pap test is a screening test which carries an inherent false negative rate. These test results should be correlated with the patient's clinical findings and history. This Pap test was processed using an automated screening system. Technical cytopathology services provided by [facility], at [address] [place] [address] (CLIA # [id number]/Alexandre Brown MD, Auto Service Instructor.) 03/31/2025 4:36 PM EDT [facility] Console Pap Interpretation Reported 03/31/2025 4:36 PM EDT [facility] Brushing/Spatula Cervix uteri structure / Unknown 03/30/2025 3:38 PM EDT 03/31/2025 6:17 AM EDT Emely Lewis [facility] CYTOLOGY ORDERABLES Final Result [facility]) [facility] [address] [place] [address], [place] [phone] * Drug abuse screen expanded with reflex confirmation, urine (03/14/2025 12:01 PM EDT) Amphetamine Screen, Ur Negative Negative LAB CHEMISTRY METHOD 03/14/2025 2:05 PM EDT [facility] Comment:Certain OTC medicati ons containing ephedrine, phenylephrine, pseudoephedrine and phenylpropanolamine can cause false positive results. Barbiturate Screen, Ur Negative Negative LAB CHEMISTRY METHOD 03/14/2025 2:05 PM EDT [facility] Benzodiazepine Screen, Ur Negative Negative LAB CHEMISTRY METHOD 03/14/2025 2:05 PM EDT [facility] Cocaine Screen, Ur Negative Negative LAB CHEMISTRY METHOD 03/14/2025 2:05 PM EDT [facility] Opiate Screen, Ur Negative Negative LAB CHEMISTRY METHOD 03/14/2025 2:05 PM EDT [facility] Cannabinoid (THC) Screen, Ur Negative Negative LAB CHEMISTRY METHOD 03/14/2025 2:05 PM EDT [facility] Comment:Specimens from patie nts taking pantoprazole sodium (Protonix) have been shown to produce false positive results. Fentanyl, Ur Negative Negative LAB CHEMISTRY METHOD 03/14/2025 2:05 PM EDT [facility] Oxycodone Screen, Ur Negative Negative LAB CHEMISTRY METHOD 03/14/2025 2:05 PM EDT [facility] Urine Urine specimen obtained by clean catch procedure / Unknown Non-blood Collection / Unknown 03/14/2025 12:01 PM EDT 03/14/2025 12:46 PM EDT Narrative [facility] - 03/14/2025 2:05 PM EDT Assay cutoffs: Amphetamines 1000 ng/mL Barbiturates 200 ng/mL Benzodiazepines 200 ng/mL Cocaine 300 ng/mL Fentanyl 1 ng/mL Opiates 300 ng/mL Oxycodone 100 ng/mL THC 50 ng/mL Semi-quantitative assay for screening purposes only. Unconfirmed screening result should not be used for non-medical purposes. *POSITIVE RESULTS ARE AUTOMATICALLY SENT FOR ALTERNATE METHOD CONFIRMATION* Emely Lewis [facility] URINE ORDERABLES Final Re sult [facility] [address] [place] [address], [place] [phone] * Culture urine (03/14/2025 12:01 PM EDT) [facility] Culture, Urine <10,000 cfu/mL Mixed bacterial bharat 03/15/2025 10:36 AM EDT [facility] Urine Urine specimen obtained by clean catch procedure / Unknown Non-blood Collection / Unknown 03/14/2025 12:01 PM EDT 03/14/2025 12:46 PM EDT Emely [facility] LAB MICROBIOLOGY - GENERAL OR DERABLES Final Result Performing Organization Address [facility]/ZIP Co de Phone Number [facility] [address] [place] [address], [place] [phone] * Hepatitis C antibody (03/14/2025 11:29 AM EDT) Pathologist [facility] [place] Hepatitis C Antibody Negative Negative LAB CHEMISTRY METHOD 03/14/2025 2:30 PM EDT [facility] Blood Venous blood specimen / Unknown Venipuncture / Unknown 03/14/2025 11:29 AM EDT 03/14/2025 12:45 PM EDT [facility] LAB BLOOD ORDERABLES Final Re sult Performing Organization Address City/[facility]/ZIP Co de Phone Number [facility] [address] [place] [address], [place] [phone] * HIV 1,2 antibody, p24 antigen with reflex to differentiation (03/14/2025 11:29 AM EDT) [facility] HIV Combo AB/AG Negative Negative LAB CHEMISTRY METHOD 03/14/2025 2:30 PM EDT [facility] Blood Venous blood specimen / Unknown Venipuncture / Unknown 03/14/2025 11:29 AM EDT 03/14/2025 12:45 PM EDT Narrative [facility] - 03/14/2025 2:30 PM EDT This assay is a 4th generation assay allowing for earlier detection of HIV infection by detecting the presence of the HIV-1 p24 antigen as well as the traditional antibodies to HIV type 1 (including group O) and type 2. Use of a 4th generation assay is the current CDC recommendation for HIV screening. [facility] LAB BLOOD ORDERABLES Final Re sult Performing Organization Address City/[facility]/ZIP Co de Phone Number [facility] [address] [place] [address], [place] [phone] * Hepatitis B surface antigen with reflex to confirmation (03/14/2025 11:29 AM EDT) [facility] Hepatitis B Surface Ag Negative Negative LAB CHEMISTRY METHOD 03/14/2025 2:39 PM EDT [facility] Blood Venous blood specimen / Unknown Venipuncture / Unknown 03/14/2025 11:29 AM EDT 03/14/2025 12:45 PM EDT Narrative [facility] - 03/14/2025 2:39 PM EDT Over the counter supplements containing high doses of biotin may interfere with this assay. If interference is suspected, patients shoud be retested after refraining from biotin supplements for 72 hours. [facility] LAB BLOOD ORDERABLES Final Re sult Performing Organization Address [facility] Co de Phone Number [facility] [address] [place] [address], [place] [phone] * Treponema pallidum antibody with reflex to RPR and particle agglutination (03/14/2025 11:29 AM EDT) T. Pallidum Antibodies Negative Negative LAB CHEMISTRY METHOD 03/14/2025 4:46 PM EDT [facility] Blood Venous blood specimen / Unknown Venipuncture / Unknown 03/14/2025 11:29 AM EDT 03/14/2025 12:45 PM EDT [facility] BLOOD ORDERABLES Final Re sult Performing Organization Address [facility] Co de Phone Number [facility] [address] [place] [address], [place] [phone] * (ABNORMAL) CBC auto differential (03/14/2025 11:29 AM EDT) WBC 12.7(H) 4.8 - 10.8 K/mcL LAB HEMETOLOGY METHOD 03/14/2025 2:28 PM EDT [facility] RBC 4.10 3.80 - 4.80 M/mcL LAB HEMETOLOGY METHOD 03/14/2025 2:28 PM EDT [facility] Hemoglobin 12.8 11.5 - 16.0 g/dL LAB HEMETOLOGY METHOD 03/14/2025 2:28 PM EDT [facility] Hematocrit 37.2 35.0 - 47.0 % LAB HEMETOLOGY METHOD 03/14/2025 2:28 PM [facility] MCV 90.3 79.0 - 98.0 FL LAB HEMETOLOGY METHOD 03/14/2025 2:28 PM [facility] MCH 31.1 27.0 - 32.0 pcg LAB HEMETOLOGY METHOD 03/14/2025 2:28 PM [facility] MCHC 34.4 32.0 - 37.0 g/dL LAB HEMETOLOGY METHOD 03/14/2025 2:28 PM [facility] RDW 12.8 11.0 - 15.0 % LAB HEMETOLOGY METHOD 03/14/2025 2:28 PM [facility] Platelets 318 130 - 400 K/mcL LAB HEMETOLOGY METHOD 03/14/2025 2:28 PM [facility] MPV 11.0 7.0 - 11.0 FL LAB HEMETOLOGY METHOD 03/14/2025 2:28 PM [facility] NRBC 0.0 <1.0 % LAB HEMETOLOGY METHOD 03/14/2025 2:28 PM [facility] NRBC Absolute 0.00 <0.10 K/mcL LAB HEMETOLOGY METHOD 03/14/2025 2:28 PM [facility] Neutrophils Relative 73.6 % LAB HEMETOLOGY METHOD [facility]/14[facility] Lymphocytes Relative 15.7 % LAB HEMETOLOGY METHOD 03/14/2025 2:28 PM [facility] Monocytes Relative 8.2 % LAB HEMETOLOGY METHOD 03/14/2025 2:28 PM [facility] Eosinophils Relative 1.7 % LAB HEMETOLOGY METHOD 03/14/2025 2:28 PM EDT [facility] Basophils Relative 0.3 % LAB HEMETOLOGY METHOD 03/14/2025 2:28 PM EDT [facility] Immature Granulocytes Relative 0.5 % LAB HEMETOLOGY METHOD 03/14/2025 2:28 PM EDT [facility] Neutrophils Absolute 9.31(H) 1.50 - 7.00 K/mcL LAB HEMETOLOGY METHOD 03/14/2025 2:28 PM EDT [facility] Lymphocytes Absolute 1.99 1.00 - 5.00 K/mcL LAB HEMETOLOGY METHOD 03/14/2025 2:28 PM EDT [facility] Monocytes Absolute 1.04(H) 0.20 - 1.00 K/mcL LAB HEMETOLOGY METHOD 03/14/2025 2:28 PM EDT [facility] Eosinophils Absolute 0.21 0.00 - 0.50 K/mcL LAB HEMETOLOGY METHOD 03/14/2025 2:28 PM EDT [facility] Basophils Absolute 0.04 0.00 - 0.20 K/mcL LAB HEMETOLOGY METHOD 03/14/2025 2:28 PM EDT [facility] Immature Granulocytes Absolute 0.06(H) 0.00 - 0.03 K/mcL LAB HEMETOLOGY METHOD 03/14/2025 2:28 PM EDT [facility] Blood Venous blood specimen / Unknown Venipuncture / Unknown 03/14/2025 11:29 AM EDT 03/14/2025 12:46 PM EDT us Emely [facility] LAB BLOOD ORDERABLES Final Re sult [facility] [address] [place] [address], * Rubella antibody IgG (03/14/2025 11:29 AM EDT) Rubella IgG Quant 63.1 >=10.0 I Unit/mL LAB CHEMISTRY METHOD 03/14/2025 2:01 PM EDT [facility] Rubella IgG Antibody Interp Positive Positive LAB CHEMISTRY METHOD 03/14/2025 2:01 PM EDT [facility] Blood Venous blood specimen / Unknown Venipuncture / Unknown 03/14/2025 11:29 AM EDT 03/14/2025 12:45 PM EDT Emely Lewis [facility] BLOOD ORDERABLES Final Re sult Performing Organization Address [facility]/ZIP Co de Phone Number [facility] [address] [place] [address], [place] [phone] * Type and screen (03/14/2025 11:29 AM EDT) Pathologist [facility] [place] ABO Group O 03/14/2025 1:52 PM EDT [facility] Rh Type Positive 03/14/2025 1:52 PM EDT [facility] Antibody Screen Negative 03/14/2025 1:52 PM EDT [facility] Blood Venous blood specimen / Unknown Venipuncture / Unknown 03/14/2025 11:29 AM EDT 03/14/2025 12:43 PM EDT Emely Lewis [facility] BLOOD BANK TEST ORDERABLE S Final Result [facility] [address] [place] [address], [place] [phone] * Varicella zoster antibody IgG (03/14/2025 11:29 AM EDT) Varicella IgG Positive Positive LAB CHEMISTRY METHOD 03/14/2025 2:07 PM EDT [facility] Varicella Zoster IgG 5.88 >=1.00 S/CO LAB CHEMISTRY METHOD 03/14/2025 2:07 PM EDT [facility] Blood Venous blood specimen / Unknown Venipuncture / Unknown 03/14/2025 11:29 AM EDT 03/14/2025 12:45 PM EDT Narrative [facility] - 03/14/2025 2:07 PM EDT Interpretation >= 1.00 S/CO is considered to be consistent with Immunity Emely CORDOBA LAB BLOOD ORDERABLES Final Re sult [facility] [address] [place] [address], * POC , urine manually resulted (03/02/2025 2:17 PM EDT) Urine Urine specimen obtained by clean catch procedure / Unknown 03/02/2025 2:17 PM EDT Emely Lewis CNM POINT OF CARE TEST ENTER/EDIT ORDERABLES Final Result from Last 3 Months Insurance [facility] Care Teams Claim Attorney Relationship Specialty Start Date End Date Elyssa Esquivel PA [address] [place] [phone] PCP - General 01/27/25
[2025-05-16 12:51] LABS: Free T4 (Free Thyroxine) 0.76 ng/dL (0.71-1.85); Thyroid Stimulating Hormone 1.25 uIU/mL (0.32-4.0)
== END 2025-05-16 11:06 | disposition home or self-care (01) ==
LOC: HO.LAB 11:05
PROVIDERS: PCP Internal Medicine; Visit Provider Student in an Organized Health Care Education/Training Program
DX: Z34.90 Encounter for supervision of normal pregnancy, unspecified, unspecified trimester (principal); E03.8 Other specified hypothyroidism; E04.2 Nontoxic multinodular goiter
CPT/HCPCS: 36415; 84436; 84439; 84443; 84480; 84481

== ENCOUNTER 2025-06-27 08:13 | Outpatient (REF) | payer BC, SELFPAY ==
--- OUTSIDE RECORDS SUMMARY | 2025-06-27 08:35 | XMS_ITS | Clinical Summary ---
Author Organization [facility] Address [address] [place] [phone] Phone Care Team Providers Care Phone Circuit Operator Name Role Phone Elyssa Esquivel Primary Care Provider [phone] Allergies Active Allergy Reactions Criticality Noted Date [...] Active Problems Problem Noted Date Diagnosed Date Superficial injury of right breast 06/23/2025 Overview (06/23/2025): Right breast at 9oclock bl vessel <1cm in size increase in size overtime Referral to specialist on 06/23 Hypothyroid in , antepartum 03/30/2025 Overview (05/02/2025): [...] Rx with plan for follow with PCP Assessment & Plan (05/26/2025 12:43 PM EDT): Trab with 28 week labs Seen by endocrine recently tsh wnl, cont with levothy 25mcg daily Herpes zoster 03/24/2025 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 [place] site: [facility] ([facility] Building): [address] [place] [phone] ([phone]) 2. Delivery site: [facility] 3. Mobile Mommas: 4. Dating criteria: [...] Encounters Date Type Department Care Team Description 06/23/2025 2:00 PM EDT Routine Obstetrics & Gynecology - [address] [address] Zaid Saenz CNM Encounter for supervision of normal first in second trimester (Primary Dx); 25 weeks gestation of ; Superficial injury of right breast, initial encounter 05/26/2025 10:00 AM EDT Routine Obstetrics & Gynecology - [address] [address] Emely Lewis CNM Hypothyroid in , antepartum (Primary Dx); 21 weeks gestation of ; Encounter for supervision of normal first in second trimester 05/23/2025 9:00 AM EDT Ancillary Procedure Maternal Medicine - [facility] [address] [place] [address] Encounter for anatomic survey; Obesity affecting in second trimester; Encounter for screening for malformations 05/02/2025 10:15 AM EDT Routine Obstetrics & Gynecology [address] [address] Kely Abraham CNM Hypothyroid in , antepartum (Primary Dx) 04/29/2025 Telephone Obstetrics & Gynecology [address] [phone] Kely Abraham CNM 04/04/2025 1:00 PM EDT Ancillary Procedure Maternal Medicine - [address] [address] Encounter for screening for nuchal translucency; Encounter for screening for malformations; Encounter for supervision of normal first in first trimester; Hypothyroid in , antepartum, second trimester; Obesity affecting in second trimester 03/30/2025 3:00 PM EDT Initial Obstetrics & Gynecology [address] [address] Emely Lewis CNM [place]: 12w6d from Last 3 Months Immunizations Name Administration Dates Next Due Hepatitis B (Nybszhy-R-Kxted , Recombivax HB-Adult) 19yo and older 11/02/2019,05/25/2019,04/28/2019 [...] Estimated Date of Delivery 03/14/2025 - Present (06/27/2025) 1 10/06/2025 (set by Kristen Ingram RN on 03/14/2025 based on Last Menstrual Period on 12/30/2024 (Exact Date)) Dating Summary Based On NICK [place] Diff Last Menstrual Period on 12/30/2024 (Exact Date) 10/06/2025 Working Alternate NICK Entry 10/06/2025 Same Comment:Date entered prior t o episode creation Vitals Pregravid Weight Height TWG (As of 06/27/2025) Pregrav id BMI 86.6 kg (191 lb) 1.702 m (67 ) 4.491 kg (9 lb 14.4 oz) 29.91 Notes Progress Notes - Routine Pre - 06/23/2025 - GA:25w0d 06/23/2025 - 25w0d - Zaid Saenz CNM Subjective Chief Complaint Patient presents with Routine Visit Brittni Molina is a 29 y.o. at 25w0d with a working estimated date of delivery of Estimated Date of Delivery: 10/06/25 by Last Menstrual Period who presents for a routine visit. She denies vaginal bleeding or leakage of fluid, denies uc. reports FM Breast exam, right breast round blood vessel <1cm in size superficial at 9oclock , denies any injury to breast but size of vessel had increase over time. Objective Physical Exam Vitals BP: 121/66 (P 77) Weight: 91.1 kg (200 lb 14.4 oz) Fundal Height (cm): 25 cm Heart Rate: 150 Ob check list: Tdap due: n/a Flu vaccine due: n/a If glucose completed: due next visit Gbs: n/a Problem list reviewed. Assessment/Plan Encounter for supervision of normal first in second trimester (Primary) - CBC and differential; Future - Glucose tolerance test, 1h gestation; Future - Treponema pallidum antibody with reflex to RPR and particle agglutination; Future 25 weeks gestation of Superficial injury of right breast, initial encounter - Ambulatory referral to Breast Clinic; Future F/u routinely Pending breast consult Progress Notes - Routine Pre - 05/26/2025 - GA:21w0d 05/26/2025 - 21w0d - Emely Lewis CNM OB Visit: Vitals BP: 121/86 (P 86) Weight: 89.9 kg (198 lb 1.6 oz) Assessment Heart Rate: 140 Fundal Height (cm): 22 cm Movement: Present Vaginal Drainage Leaking Fluid: No 29 y.o. old female at 21w0d. Doing well. + FM. No LOF/VB/cramping. Her only new concern is interittetn pedal edema. Otherwise healthy . Her BP is reviewed and is Normal. No pedal edema noted today. Enc compression stockings. Aneuploidy screening reviewed; it is Declined. MSAFP deferred by patient. She does not require a urine drug screen. Rev'd normal second trimester changes, comfort measures including reasons to call triage. Problem List reviewed and updated. RTO 4 weeks. Hypothyroid in , antepartum (Primary) Assessment & Plan: Trab with 28 week labs Seen by endocrine recently tsh wnl, cont with levothy 25mcg daily 21 weeks gestation of Encounter for supervision of normal first in second trimester Emely Lewis CNM on 05/26/2025 at 12:40 PM EDT 05/26/2025 - w0d - Ramin Valdez [place] Ob f/up Progress Notes - Routine Pre - 05/02/2025 - GA:17w4d 05/02/2025 - 17 - Kely Abraham CNM OB Visit: Vitals [...] on 04/04/25 . 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 Scheduled for FAS. Kely Abraham CNM on 05/02/2025 at 10:26 AM EDT Progress Notes - Initial Pre - 03/30/2025 - GA:12w6d 03/30/2025 - 12w6d [...] the first trimester and how to contact pony ride attendant provider. Discussed the benefits of breast feeding and strongly encouraged to consider this. Counseled regarding the diagnosis of anomalies. She was offered a referral to maternal medicine for PANORAMA testing. She declines the serum testing, is netta for NL on next week. the referral. Pt is followed by Endocrine/Diabetes office in [place]- [facility] sign DARIN to obtain records for co- management. Prob list updated Okay to change to an otc gummy pnv Start baby asa due to primigravida/ reduce risk of Pre-eclampsia RTO 4 weeks. The patient does not require anesthesia consult. This patient's VTE risk status is low. Jennings Depression Scale: In the Past 7 Days [...] harming myself has occurred to me.: Never Jennings Depression Scale Total: 12 [place] SCREENING CHARGE (Clinic Only): [id number] Emely Lewis CNM on 03/30/2025 at 4:14 [...] to the above questions, is this for scientology reasons? N/A Do you know what your [...] of estimated date of delivery No Thalassemia (Guinean, Tajik, Mediterranean, or background): MCV less than 80 No Neural tube defect (Meningomyelocele, Spina bifida, or Anencephaly) No Congenital heart defect No Down syndrome No Alex-Sachs (Ashkenazi Tenriism, Cajun, Portuguese South Sudanese) No Mckayla disease (Ashkenazi Tenriism) No Familial dysautonomia (Ashkenazi Tenriism) No Sickle cell disease or trait () No Hemophilia or other blood disorders No Muscular dystrophy No Cystic fibrosis No Maceo's chorea No Intellectual disability and/or autism Yes, [...] Molina has also been informed of the executive associate provider recommendation for first trimester nuchal lucency testing to be performed during her . Brittni Molina has also been made aware of the time sensitive nature for this testing to be completed. . The patient now has a gestational age of 10w4d. The patient has agreed that she does want nuchal lucency testing. Ethnicity Based Genetic Testing has been reviewed and the [employer] information sheet has been provided to the [...] For Horizon [employer]rier Screening, if patient has [place], [facility] or [place] insurances: Not Applicable Electronically signed by: Krisetn Ingram RN 03/14/25 10:38 AM EDT Last Filed Vital Signs Vital Sign Reading Time Taken Comments Blood Pressure 121/66 06/23/2025 1:57 PM EDT P 7 7 Pulse 77 03/14/2025 10:33 AM EDT Temperature - - Respiratory Rate - - Oxygen Saturation - - Inhaled Oxygen Concentration - - Weight 91.1 kg (200 lb 14.4 oz) 06/23/2025 1:57 PM EDT Height 170.2 cm (5' 7 ) 03/14/2025 10:3 3 AM EDT Body Mass Index 31.47 03/14/2025 10:33 AM EDT Plan of Treatment Upcoming Encounters Date Type Department Care Team (Late st Contact Info) Description 07/21/2025 11:00 AM EDT Routine Obstetrics & Gynecology - [address] [phone] Zaid Saenz CNM [address] [place] [address] 08/04/2025 11:00 AM EDT Routine Obstetrics & Gynecology [address] [address] Zaid Saenz CNM [address] [place] [address] 08/18/2025 11:00 AM EDT Routine Obstetrics & Gynecology - [facility] [address] [place] [address] Zaid Saenz, CNM [address] [place] [address] Health Maintenance Due Date Last Done Comments DTaP,Tdap,and Td Vaccines (1 - Tdap) 2012 COVID-19 Vaccine (4 - 2023-2 5 season) 2024 09/22/2021, 12/22/2020, 12/01/2020 Depression Screening 11/03/2024 Cholesterol Screening (Lipid Panel) 01/28/2025 Social Influencers of Health Screening 01/28/2025 [...] Priority Date/Time Associated Diagnosis Comments US OB DETAILED SINGLE OR FIRST GESTATION Routine 05/23/2025 10:09 AM EDT Encounter for anatomic survey Obesity affecting in second trimester Encounter for screening for malformations US OB LESS 14 WKS SINGLE OR [...] trimester Screening for malignant neoplasm of cervix HEPATITIS C ANTIBODY Routine 03/14/2025 11:29 AM EDT Encounter for screening of mother Encounter for supervision of normal first in first trimester HIV 1, 2 ANTIBODY, P24 ANTIGEN WITH REFLEX TO DIFFERENTIATION Routine 03/14/2025 11:29 AM EDT Encounter for screening of mother Encounter for supervision of normal first in first trimester from Last 3 Months or Most Recently Relevant to Health Maintenance Results * US OB Detailed Single or First Gestation (05/23/2025 10:09 AM EDT) Anatomical Region Laterality Modality Body Ultrasound 05/23/2025 8:49 AM EDT Narrative 05/23/2025 12:29 PM EDT OBSTETRICS REPORT (Signed Final 05/23/2025 12:29 pm) PATIENT INFO: ID #: [id number] : [birth year] (29 yrs)(F) Name: BRITTNI MOLINA Visit Date: 05/23/2025 08:49 am PERFORMED BY: Attending: Gayle Rutherford MD Performed By: Willian Webster RDMS Referred By: Emely Lewis [facility] Ref. Address: [address] [place] [address] Location: [facility] SERVICE(S) PROVIDED: US Level II complete (Targeted OB) 91437 INDICATIONS: Obesity complicating , 2nd O99.212 trimester Hypothyroid in , antepartum O99.280 Encounter for screening for Z36.3 malformations 20 weeks gestation of Z3A.20 TECHNIQUE/SCAN QUALITY: Technique: Transabdominal Scan Satisfactory Quality: OB HISTORY: : 1 Term: 0 VITAL SIGNS: Weight (lb) Height BMI 197 5'7 30.85 EVALUATION: Number Of Fetuses: 1 Heart Rate(bpm): 150 Cardiac Activity: Observed Presentation: Breech Placenta Location: Posterior Appearance: Grade 1 Relation to CVX: No previa Cord Insertion: Normal appearance Amniotic Fluid VERNON FV: Within Normal Limits Comment: A >2 x 2 cm pocket of fluid is noted. BIOMETRY: BPD: 50.6 mm G.Age: 21w 2d 78 % HC: 181.7 mm G.Age: 20w 4d 41 % AC: 165.8 mm G.Age: 21w 4d 77 % FL: 35.3 mm G.Age: 21w 1d 62 % HUM: 34.4 mm G.Age: 21w 5d 80 % CER: 22.9 mm G.Age: 21w 3d 70 % NFT: 4.13 mm NB: 7.2 mm 57 % > 1 MoM LV: 6.6 mm CM: 5 mm OOD: 33.2 mm G.Age: 20w 0d 49 % CI: 77.69 % 70 - 86 FL/HC: 19.4 % 15.9 - 20.3 HC/AC: 1.10 1.06 - 1.25 FL/BPD: 69.8 % FL/AC: 21.3 % 20 - 24 Est. FW: 415 gm 0 lb 15 oz 84 % GESTATIONAL AGE: LMP: 20w 4d Date: 12/30/24 NICK: 10/06/25 U/S Today: 21w 1d NICK: 10/02/25 Best: 20w 4d Det. By: LMP (12/30/24) NICK: 10/06/25 DETAILED ANATOMY: Head / Neck Cranial Vault: Normal appearance Cavum Septi Pellucidi: Normal appearance Parenchyma: Normal appearance R. Lat. Ventricle: Normal appearance L. Lat. Ventricle: Normal appearance Corpus Callosum: Normal appearance Midline Falx: Normal appearance R. Choroid Plexus: Normal appearance L. Choroid Plexus.: Normal appearance Cerebellum: Normal appearance CCisterna Magna: Normal appearance Nuchal Fold: Normal appearance Neck: Normal appearance Face Face Profile: Normal appearance Nasal Bone: Normal appearance Coronal Face: Normal appearance Lips: Normal appearance Nose: Normal appearance Lenses: Normal appearance Orbits: Normal appearance Palate: Suboptimal views Heart Cardiac Activity: Normal appearance Cardiac Rhythm: Normal appearance 4 Chamber View: Normal appearance R. Outflow Tract: Normal appearance L. Outflow Tract: Normal appearance Interventr. Septum: Normal appearance 3 Vessel View: Normal appearance 3V Trachea View: Normal appearance Cardiac Situs: Normal appearance Aortic Arch: Normal appearance SVC: Normal appearance IVC: Normal appearance Ductal Arch: Normal appearance Crossing G. Ves.: Normal appearance Thorax Lungs: Normal appearance Cardiac [place]: Normal appearance Diaphragm: Normal appearance Thoracic Contour: Normal appearance Abdomen Situs: Normal appearance Stomach: Normal appearance Bowel: Normal appearance Liver: Normal appearance Abdominal Wall: Normal appearance Urinary Bladder: Normal appearance R. Kidney: Normal appearance L. Kidney: Normal appearance R. Renal Artery: Normal appearance L. Renal Artery: Normal appearance Umbilical Cord: Normal Appearance UC Vessel Num.: Normal 3VC Cord Insertion: Normal appearance Spine Cervical: Normal appearance Thoracic: Normal appearance Lumbar: Normal appearance Sacral: Normal appearance Shape / Curvature: Normal appearance Over. Soft Tissue: Normal appearance Vertebral Body: Normal appearance Extremities R. Humerus: Normal appearance L. Humerus: Normal appearance R. Forearm: Normal appearance L. Forearm: Normal appearance R. Hand: Normal appearance L. Hand: Normal appearance R. Femur: Normal appearance L. Femur: Normal appearance R. Lower Leg: Normal appearance L. Lower Leg: Normal appearance R. Foot: Normal appearance L. Foot: Normal appearance Other Genitalia: Normal appearance CERVIX UTERUS ADNEXA: Right Ovary Not visualized. Left Ovary Not visualized. COMMENTS: Ms. Molina is being seen for a detailed ultrasound for obesity. - Her medical history is significant for hypothyroidism, anxiety and depression. She takes 50 mcg Levothyroxine. - Cell free DNA screening was declined. - Ultrasound findings: The biometry and anatomical survey are appropriate for the gestational age. There are no markers of aneuploidy. - The patient declined vaginal ultrasound to assess cervical length for risk of . - Plan: No additional ultrasounds have been scheduled. Follow up as clinically indicated. Gayle Rutherford MD Electronically Signed Final Report 05/23/2025 12:29 pm Procedure Gayle Anton MD - 05/23/2025 OBSTETRICS REPORT (Signed Final 05/23/2025 12:29 pm) PATIENT INFO: ID #: [id number] : [birth year] (29 yrs)(F) Name: BRITTNI MOLINA Visit Date: 05/23/2025 08:49 am PERFORMED BY: Attending: Gayle Rutherford MD Performed By: Willian Webster RDGA Referred By: Emely Lewis [facility] Ref. Address: [address] [place] [id number] Location: [facility]) SERVICE(S) PROVIDED: US Level II complete (Targeted OB) [address] INDICATIONS: Obesity complicating , 2nd O99.212 trimester Hypothyroid in , antepartum O99.280 Encounter for screening for Z36.3 malformations 20 weeks gestation of Z3A.20 TECHNIQUE/SCAN QUALITY: Technique: Transabdominal Scan Satisfactory Quality: OB HISTORY: : 1 Term: 0 VITAL SIGNS: Weight (lb) Height BMI 197 5'7 30.85 EVALUATION: Number Of Fetuses: 1 Heart Rate(bpm): 150 Cardiac Activity: Observed Presentation: Breech Placenta Location: Posterior Appearance: Grade 1 Relation to CVX: No previa Cord Insertion: Normal appearance Amniotic Fluid VERNON FV: Within Normal Limits Comment: A >2 x 2 cm pocket of fluid is noted. BIOMETRY: BPD: 50.6 mm G.Age: 21w 2d 78 % HC: 181.7 mm G.Age: 20w 4d 41 % AC: 165.8 mm G.Age: 21w 4d 77 % FL: 35.3 mm G.Age: 21w 1d 62 % HUM: 34.4 mm G.Age: 21w 5d 80 % CER: 22.9 mm G.Age: 21w 3d 70 % NFT: 4.13 mm NB: 7.2 mm 57 % > 1 MoM LV: 6.6 mm CM: 5 mm OOD: 33.2 mm G.Age: 20w 0d 49 % CI: 77.69 % 70 - 86 FL/HC: 19.4 % 15.9 - 20.3 HC/AC: 1.10 1.06 - 1.25 FL/BPD: 69.8 % FL/AC: 21.3 % 20 - 24 Est. FW: 415 gm 0 lb 15 oz 84 % GESTATIONAL AGE: LMP: 20w 4d Date: 12/30/24 NICK: 10/06/25 U/S Today: 21w 1d NICK: 10/02/25 Best: 20w 4d Det. By: LMP (12/30/24) NICK: 10/06/25 DETAILED ANATOMY: Head / Neck Cranial Vault: Normal appearance Cavum Septi Pellucidi: Normal appearance Parenchyma: Normal appearance R. Lat. Ventricle: Normal appearance L. Lat. Ventricle: Normal appearance Corpus Callosum: Normal appearance Midline Falx: Normal appearance R. Choroid Plexus: Normal appearance L. Choroid Plexus.: Normal appearance Cerebellum: Normal appearance CCisterna Magna: Normal appearance Nuchal Fold: Normal appearance Neck: Normal appearance Face Face Profile: Normal appearance Nasal Bone: Normal appearance Coronal Face: Normal appearance Lips: Normal appearance Nose: Normal appearance Lenses: Normal appearance Orbits: Normal appearance Palate: Suboptimal views Heart Cardiac Activity: Normal appearance Cardiac Rhythm: Normal appearance 4 Chamber View: Normal appearance R. Outflow Tract: Normal appearance L. Outflow Tract: Normal appearance Interventr. Septum: Normal appearance 3 Vessel View: Normal appearance 3V Trachea View: Normal appearance Cardiac Situs: Normal appearance Aortic Arch: Normal appearance SVC: Normal appearance IVC: Normal appearance Ductal Arch: Normal appearance Crossing G. Ves.: Normal appearance Thorax Lungs: Normal appearance Cardiac [place]: Normal appearance Diaphragm: Normal appearance Thoracic Contour: Normal appearance Abdomen Situs: Normal appearance Stomach: Normal appearance Bowel: Normal appearance Liver: Normal appearance Abdominal Wall: Normal appearance Urinary Bladder: Normal appearance R. Kidney: Normal appearance L. Kidney: Normal appearance R. Renal Artery: Normal appearance L. Renal Artery: Normal appearance Umbilical Cord: Normal Appearance UC Vessel Num.: Normal 3VC Cord Insertion: Normal appearance Spine Cervical: Normal appearance Thoracic: Normal appearance Lumbar: Normal appearance Sacral: Normal appearance Shape / Curvature: Normal appearance Over. Soft Tissue: Normal appearance Vertebral Body: Normal appearance Extremities R. Humerus: Normal appearance L. Humerus: Normal appearance R. Forearm: Normal appearance L. Forearm: Normal appearance R. Hand: Normal appearance L. Hand: Normal appearance R. Femur: Normal appearance L. Femur: Normal appearance R. Lower Leg: Normal appearance L. Lower Leg: Normal appearance R. Foot: Normal appearance L. Foot: Normal appearance Other Genitalia: Normal appearance CERVIX UTERUS ADNEXA: Right Ovary Not visualized. Left Ovary Not visualized. COMMENTS: Ms. Molina is being seen for a detailed ultrasound for obesity. - Her medical history is significant for hypothyroidism, anxiety and depression. She takes 50 mcg Levothyroxine. - Cell free DNA screening was declined. - Ultrasound findings: The biometry and anatomical survey are appropriate for the gestational age. There are no markers of aneuploidy. - The patient declined vaginal ultrasound to assess cervical length for risk of . - Plan: No additional ultrasounds have been scheduled. Follow up as clinically indicated. Gayle Rutherford MD Electronically Signed Final Report 05/23/2025 12:29 pm us Emely Lewis CNM IMG OB US PROCEDURES Final Re sult * US OB Less 14 Wks Nuchal Measurement (04/04/2025 1:35 PM EDT) Anatomical Region Laterality Modality Body Ultrasound 04/04/2025 12:5 8 PM EDT Narrative 04/04/2025 2:38 PM EDT OBSTETRICS REPORT (Signed Final 04/04/2025 02:38 pm) PATIENT INFO: ID #: [id number] : [birth year] (29 yrs)(F) Name: BRITTNI MOLINA Visit Date: 04/04/2025 12:58 pm PERFORMED BY: Attending: Mili Silva MD Performed By: Willian Webster [facility] Referred By: Emely Lewis [facility] Ref. Address: [address] [place] [id number] Location: [facility]) SERVICE(S) PROVIDED: US Nuchal Translucency 69157 US < 14 weeks Abdominal Ultrasound [address] INDICATIONS: Obesity complicating , 1st O99.211 trimester [...] 04/04/2025 02:38 pm) PATIENT INFO: ID #: [id number] : [birth year] (29 yrs)(F) Name: BRITTNI MOLINA Visit Date: 04/04/2025 12:58 pm PERFORMED BY: Attending: Mili Silva MD Performed By: Willian Webster RDMS Referred By: Emely Lewis [facility] Ref. Address: [address] [place] [address] Location: [facility] SERVICE(S) PROVIDED: US Nuchal Translucency 62047 US < 14 weeks Abdominal Ultrasound [address] INDICATIONS: Obesity complicating , 1st O99.211 trimester [...] Final Report 04/04/2025 02:38 pm us Emely CORDOBA IMG OB US PROCEDURES Final Re sult * US OB Less 14 Wks Single or First Gestation (04/04/2025 1:35 PM EDT) Anatomical Region Laterality Modality Body Ultrasound 04/04/2025 12:5 8 PM EDT Narrative 04/04/2025 2:38 PM EDT OBSTETRICS REPORT (Signed Final 04/04/2025 02:38 pm) PATIENT INFO: ID #: [id number] : [birth year] (29 yrs)(F) Name: BRITTNI MOLINA Visit Date: 04/04/2025 12:58 pm PERFORMED BY: Attending: Mili Silva MD Performed By: Willian Webster RDGA Referred By: Emely Lewis [facility] Ref. Address: [address] [place] [address] Location: [facility] SERVICE(S) PROVIDED: US Nuchal Translucency 61866 US < 14 weeks Abdominal Ultrasound 14141 INDICATIONS: Obesity complicating , 1st O99.211 trimester [...] 04/04/2025 02:38 pm) PATIENT INFO: ID #: [id number] : [birth year] (29 yrs)(F) Name: BRITTNI MOLINA Visit Date: 04/04/2025 12:58 pm PERFORMED BY: Attending: Mili Silva MD Performed By: Willian Webster RDMS Referred By: Emely Lewis [facility] Ref. Address: [address] [place] [address] Location: [facility] SERVICE(S) PROVIDED: US Nuchal Translucency 13086 US < 14 weeks Abdominal Ultrasound 38814 INDICATIONS: Obesity complicating , 1st O99.211 trimester [...] LAB MICROBIOLOGY METHOD 04/01/2025 9:50 AM EDT [facility] Brushing/Spatula Cervix uteri structure / Unknown 03/30/2025 3:38 PM EDT 03/31/2025 6:17 AM EDT Emely Lewis CNM LAB MOLECULAR DIAGNOSTICS ORD ERABLES Final Result [facility] [address] [place] [address], [place] [phone] * Pap smear (03/30/2025 3:38 PM EDT) Interpretation Negative for intraepithelial lesion or malignancy 03/31/2025 4:36 PM EDT [facility] General Categorization Negative 03/31/2025 4:36 PM EDT [facility] Specimen Adequacy Satisfactory for evaluation, endocervical/yu sformation zone component absent 03/31/2025 4:36 PM EDT [facility] Pap Methodology Liquid Based Pap Test 03/31/2025 4:36 PM EDT [facility] Disclaimer The Pap test is a screening test which carries an inherent false negative rate. These test results should be correlated with the patient's clinical findings and history. This Pap test was processed using an automated screening system. Technical cytopathology services provided by [facility], at [address] [place] [address] (CLIA # [id number]/Alexandre Brown MD, Chronometer Assembler.) 03/31/2025 4:36 PM EDT [facility] Console Pap Interpretation Reported 03/31/2025 4:36 PM EDT [facility] Brushing/Spatula Cervix uteri structure / Unknown 03/30/2025 3:38 PM EDT 03/31/2025 6:17 AM EDT Emely Lewis [facility] CYTOLOGY ORDERABLES Final Result [facility] [address] [place] [address], * Hepatitis C antibody (03/14/2025 11:29 AM EDT) Hepatitis C Antibody Negative Negative LAB CHEMISTRY METHOD 03/14/2025 2:30 PM EDT [facility] Blood Venous blood specimen / Unknown Venipuncture / Unknown 03/14/2025 11:29 AM EDT 03/14/2025 12:45 PM EDT [facility]OD ORDER[facility]LES Final Re sult [facility] [address] [place] [address], [place] [phone] * HIV 1,2 antibody, p24 antigen with reflex to differentiation (03/14/2025 11:29 AM EDT) HIV Combo AB/AG Negative Negative LAB CHEMISTRY METHOD 03/14/2025 2:30 PM EDT [facility] Blood Venous blood specimen / Unknown Venipuncture / Unknown 03/14/2025 11:29 AM EDT 03/14/2025 12:45 PM EDT Narrative [facility] - 03/14/2025 2:30 PM EDT This assay is a 4th generation assay allowing for earlier detection of HIV infection by detecting the presence of the HIV-1 p24 antigen as well as the traditional antibodies to HIV type 1 (including group O) and type 2. Use of a 4th generation assay is the current CDC recommendation for HIV screening. [facility] BLOOD ORDERABLES Final Re sult Performing Organization Address [facility] Co de Phone Number [facility] [address] [place] [address], [place] [phone] from Last 3 Months or Most Recently Relevant to Health Maintenance Insurance [facility] Care Teams Phone Circuit Operator Relationship Specialty Start Date End Date Elyssa Esquivel PA [address] [place] [phone] PCP - General 01/27/25
[2025-06-27 09:56] LABS: Free T4 (Free Thyroxine) 0.75 ng/dL (0.71-1.85); Thyroid Stimulating Hormone 1.61 uIU/mL (0.32-4.0)
== END 2025-06-27 08:14 | disposition home or self-care (01) ==
LOC: HO.LAB 08:13
PROVIDERS: PCP Internal Medicine; Visit Provider Student in an Organized Health Care Education/Training Program
DX: O99.282 Endocrine, nutritional and metabolic diseases complicating pregnancy, second trimester (principal); E03.8 Other specified hypothyroidism; Z3A.14 14 weeks gestation of pregnancy
CPT/HCPCS: 36415; 84436; 84439; 84443; 84480; 84481

== ENCOUNTER 2025-08-08 09:05 | Outpatient (AMB) | payer BC, SELFPAY ==
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
--- NOTE | 2025-08-08 09:06 | A.OFFVIS_ITS ---
Vital Signs 3 08/08/25 09:07 Height 5 ft 6 in Weight 212 lb 4.882 oz BMI 34.3 BP 98/62 Blood Pressure Location Lt brachial Position Sitting Pulse 86 Pulse Source Pulse Oximeter Pulse Oximetry (%) 98 Oxygen Delivery Method Room Air Intake Visit Reasons: Thyroid nodule Intake Note: Patient present today for Thyroid nodule office visit. Epic Analyst Required: No Accompanied by: Self / Same As Patient Allergies haloperidol (From Haldol) Allergy (Unknown, Verified 08/08/25 09:11) Dystonic Reaction metoclopramide (From Reglan) Allergy (Unknown, Verified 08/08/25 09:11) Dystonic Reaction Medication List - Last Reconciled 08/08/25 by Yessi Emery MD levothyroxine 25 mcg PO DAILY 75-iron [id number] [phone] mg-mcg-mg (One Daily ) pkgs PO HPI Comments Details: 29-year-old female coming in today for follow up of multinodular goiter and subclinical hypothyroidism. HPI Was reporting trouble swallowing and primary care physician palpated the nodule. Ultrasound from October 2024 done at [facility], images not available to be reviewed, however ultrasound report shows a 1 cm right-sided lower pole nodule which is solid, isoechoic, not taller than wide, no echogenic foci, TR 3 category. Another left upper pole 1.3 X 0.7 X 0.8 cm solid, hypoechoic nodule not taller than wide, smooth, no punctate echogenic foci, TR 4 category. Both do not meet criteria for FNA. Labs from that September 2024 reviewed shows normal TSH of 2.4, with normal free T4 1.18. Patient currently denies heat or cold intolerance, diarrhea or constipation, , palpitation, anxiety, mood changes, changes in appearance of eyes or vision changes, tremors. Reports acne and hair loss.?Reports diaphoresis. Reports low energy. Reports acne whihc is new. BP is low. Reports dizziness , low sex drive. Works out a lot, difficulty losing weight. Gained 20 lbs in 6 months , despite working out and eating well. Reports easy bruising. Patient denies any pain on swallowing or difficulty breathing. Winded at home. Reports dysphagia for a couple of years. Big dry bites is difficult. Feels worsened. Feels after singing raspiness. Patient denies any history of childhood neck radiation. Denies having ever used lithium, amiodarone or biotin supplements.Just on a . Occasional valacyclovir once a year PRN for cold sores. Mother has thyroid cancer. Hypothyroidism in paternal side of the family. Been trying to get for the past 3 months. LMP 12/30/24 , periods every month Interval history 02/14/2025 02/08/25: TSH 3.46 6 weeks today 02/14/25 , G1 NICK per patient Oct 06 2026 Has appt with OB 03/02/[address] Extreme fatigue and nausea One vomiting Lack of apetite Interval history 04/11/2025 02/14/2025: TSH 4.10, free T4 0.88, T4 6.5, free T3 3.4, total T3 117 14 weeks today 04/11/25 Reports improved nausea, energy NICK per patient 10/06/2026 Following with Ob at [facility] to [address] [place] [address] Currently on levothyroxine 25 mcg daily started on 02/16/2025 as given TSH should be targeted to less than 2.5 in the 1st trimester Most recent blood work from 04/04/2025 levels good for second trimester of Interval history 08/08/2025 Labs from 06/27/2025: TSH 1.61, free T4 0.75, total T4 8.8, free T3 2.7, total T3-1 47 currenlty 31 weeks reports tiredness no more nausea Following with Ob at [facility] to [address] [place] [address] Currently on levothyroxine 25 mcg daily Obesity: not adressed note: Patient is currently , would like to hold off on further management of this for now. BMI 30.7 kg per m2 Current weight 190 lb Despite rigorous exercise, such as heavy lifting and HIIT workouts five to six times a week, and a healthy diet of three meals per day, she struggles with a weight increase of approximately 18 pounds over the last six Physical exam General: sitting comfortably in no acute distress HEENT: normocephalic/atraumatic, Neck: supple, palpable 1 cm right-sided nodule, does have dorsocervical and supraclavicular fat pads Cardiac: normal heart sounds Pulm: normal breath sounds B/L, no added breath sounds Abd:gravid abdomen Extremities: no edema, Laboratory Tests 02/08/25 15:04 TSH 3.46 Laboratory Tests 02/14/25 04/04/25 09:43 11:36 TSH 4.10 H 2.27 Free T4 0.88 0.83 Thyroxine (T4) 6.5 8.7 Free T3 3.4 2.9 Total T3 117 143 Laboratory Tests 06/27/25 08:35 TSH 1.61 Free T4 0.75 Thyroxine (T4) 8.8 Free T3 2.7 Total T3 147 [facility] Medical History (Updated 04/11/25 @ 09:32 by Yessi Emery MD) Subclinical hypothyroidism Obesity (BMI 30.0-34.9) Multinodular goiter Surgical History Hx of appendectomy Hx of tonsillectomy Family History Mother Thyroid cancer Father High blood pressure High cholesterol Social History Alcohol intake: current Alcohol intake frequency: a few times a month Patient Tobacco Use Status: Never used Tobacco Physical Exam Vital Signs: Last Vital Signs Pulse 86 08/08/25 09:07 BP 98/62 08/08/25 09:07 Pulse Ox 98 08/08/25 09:07 Oxygen Delivery Method Room Air 08/08/25 09:07 BMI result Body Mass Index 34.3 Assessment & Plan Assessment & Plan (1) Multinodular goiter: Code(s): E04.2 - Nontoxic multinodular goiter Category: Medical Plan: 29-year-old female with no personal history of head or neck radiation, with family history of thyroid cancers coming in today for fup of multinodular goiter. Ultrasound from October 2024 done at [facility], images not available to be reviewed, however ultrasound report shows a 1 cm right-sided lower pole nodule which is solid, isoechoic, not taller than wide, no echogenic foci, TR 3 category. Another left upper pole 1.3 X 0.7 X 0.8 cm solid, hypoechoic nodule not taller than wide, smooth, no punctate echogenic foci, TR 4 category. Both do not meet criteria for FNA. I explained that it is common to have thyroid nodules. About 95% of the time these nodules are benign. However if the nodule is a certain size based on features or suspicious on ultrasound then a fine need aspiration biopsy is recommended. At this time none of her nodules meet criteria for FNA. I discussed with her that we will plan to repeat an ultrasound of the her thyroid in 1 year from the last 1 which would be in October 2025. Given her estimated due date is in October 2025, she would like to wait to get the ultrasound in November 2025. She can follow up with me in January 2026 to discuss results. She is also currently 31 weeks , 1 para 0, NICK October 06 we started her on low-dose levothyroxine 25 mcg daily in February 2025 as TSH was elevated. Most recent labs showed TSH has come down now within good range. Plan: -ordered TSH TSH, free T4, free T3, total T4 and total T3 levels, to be done now, we will communicate results over the phone -continue levothyroxine 25 mcg daily -follow up in 4 months -repeat thyroid ultrasound ordered for November 2025, - (2) Subclinical hypothyroidism: Code(s): E03.8 - Other specified hypothyroidism Category: Medical Plan: See above (3) : Code(s): Z34.90 - Encounter for supervision of normal , unspecified, unspecified trimester Category: Medical Qualifiers: Weeks of gestation: 14 weeks Qualified Code(s): Z3A.14 - 14 weeks gestation of Plan: See above Plan see above Patient Instructions: do blood work now, we will reach out with the results Please call our office during office hours and let us know the fax number where you would like your notes to be sent over or your OBGYN provider can request it themselves Do ultrasound of the thyroid a few weeks prior to your next appointment in mid January 2026, someone should be calling you to schedule the ultrasound if you do not hear from anyone by December 2025, you can do the [facility] a call and schedule the ultrasound yourself Coding Level of Care Code Est Pt Level 3 (97559) Diagnoses Multinodular goiter E04.2 Subclinical hypothyroidism E03.8 14 weeks gestation of Z3A.14 Weeks of gestation: 14 weeks
[2025-08-08 09:07] VITALS: BP 98/62; PULSE 86; O2SAT 98; BMI 34.3
--- OUTSIDE RECORDS SUMMARY | 2025-08-08 10:10 | XMS_ITS | Clinical Summary ---
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 (03/14/2025 11:29 AM EDT) HIV Combo AB/AG Negative Negative LAB CHEMISTRY METHOD 03/14/2025 2:30 PM EDT [facility] Blood Venous blood specimen / Unknown Venipuncture / Unknown 03/14/2025 11:29 AM EDT 03/14/2025 12:45 PM EDT Narrative [facility] - 03/14/2025 2:30 PM EDT This assay is a 4th generation assay allowing for earlier detection of HIV infection by detecting the presence of the HIV-1 p24 antigen as well as the traditional antibodies to HIV type 1 (including group O) and type 2. Use of a 4th generation assay is the current CDC recommendation for HIV screening. 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
--- OUTSIDE RECORDS SUMMARY | 2025-08-08 10:10 | XMS_ITS | Encounter Summary ---
Author Organization [facility] Address [address] [place] [address] Care Team Providers Care Machine Ii Trimmer Name Role Phone rIma De Souza MD Primary Care Provide r Encounter Details Date Type Department Care Team ([facility] Contact Info) Description 08/04/2025 Telephone Obstetrics and Gynecology - [place] [address] [place] [phone] [facility] [address] [place] [address] Social History Tobacco Use Types Packs/Day Years [...] on file documented as of this encounter Functional Status * Calculated C-SSRS Risk Score (Lifetime/Recent) Answer Date of Assessment Author No Risk Indicated 08/04/2025 10:39 AM EDT Esme Carrion v, RN * [place] Suicide Severity Rating Scale (Screener/Recent Self-Report) Question Answer Date of Assessment Author 1. Wish to be (Past 1 Month) No 08/04/2025 10:39 AM EDT Ulysses Guerra RN 2. Non-Specific Active Suici ritika Thoughts (Past 1 Month) No 08/04/2025 10:39 AM EDT Lakshmi Guerra RN 6. Suicidal Behavior (Lifetime) No 10:39 AM EDT Esme Guerra RN documented as of this encounter Progress Notes * Tona Prieto RN - 08/05/2025 8:39 AM EDT Kyara from Dr Barton office notified of providers message and pt is scheduled with Breast care ctr 08/31/[address] Rubi. * Rebecca Verdugo - 08/04/2025 1:54 PM EDT Chief Complaint/problem: Lyubov @ [facility] called states that patient was referred back in June for breast issue (injury). She states that when she called the patient she told her there wasn't an injury and it was a growth . Lyubov stated that it should have never been sent to them that Zaid Saenz should of done an ultrasound first How long has the patient had this problem? June Pt???s TREASURY SPECIALIST provider: Zaid Saenz CNEder Last menstrual period (LMP) or EDC (due date): 10/06/2025 documented in this encounter Plan of Treatment Upcoming Encounters Date Type Department Care Team (Late st Contact Info) Description 08/15/2025 1:00 PM EDT Ancillary Procedure Maternal Medicine - [address] [phone] 08/15/2025 1:45 PM EDT Routine Obstetrics and Gynecology - [address] [phone] Adriana Little, [address] 08/30/2025 9:30 AM EDT Routine Obstetrics and Gynecology - [address] [phone] Nhi Avina, [address] 08/31/2025 10:45 AM EDT [address] [phone] Jeferson Rubi MD [address] [place] [phone] 09/12/2025 8:45 AM EST Routine Obstetrics and Gynecology - [address] [phone] Adriana Little, [address] 09/19/2025 9:30 AM EST Routine Obstetrics and Gynecology - [address] [phone] Adriana Little CN[address] 09/26/2025 9:15 AM EST Routine Obstetrics and Gynecology - [address] [phone] Adriana Little, [address] 10/03/2025 9:30 AM EST Routine Obstetrics and Gynecology - [address] [phone] Adriana Little CN[address] 10/10/2025 9:45 AM EST Routine Obstetrics and Gynecology - [address] [phone] Adriana Little CN[address] documented as of this encounter Visit Diagnoses Not on filedocumented in this encounter Care Teams Machine Ii Trimmer Relationship Specialty Start Date End Date Irma De Souza MD [address] [place] [address] PCP - General Internal Medicine 07/29/25 documented as of this encounter
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
== END 2025-08-08 09:23 | disposition home or self-care (01) ==
LOC: HO.ENCR 09:06
PROVIDERS: PCP Obstetrics & Gynecology; Visit Provider Student in an Organized Health Care Education/Training Program
DX: E04.2 Nontoxic multinodular goiter (principal); E03.8 Other specified hypothyroidism; Z3A.14 14 weeks gestation of pregnancy
CPT/HCPCS: 99213

== ENCOUNTER 2025-08-08 09:05 | Outpatient (REF) | payer BC, SELFPAY ==
[2025-08-08 11:08] LABS: Free T4 (Free Thyroxine) 0.81 ng/dL (0.71-1.85); Thyroid Stimulating Hormone 1.66 uIU/mL (0.32-4.0)
== END 2025-08-08 09:06 | disposition home or self-care (01) ==
LOC: HO.LAB 09:05
PROVIDERS: PCP Obstetrics & Gynecology; Visit Provider Student in an Organized Health Care Education/Training Program
DX: E04.2 Nontoxic multinodular goiter (principal); E03.8 Other specified hypothyroidism; Z34.92 Encounter for supervision of normal pregnancy, unspecified, second trimester; Z3A.14 14 weeks gestation of pregnancy; Z79.890 Hormone replacement therapy
CPT/HCPCS: 36415; 84436; 84439; 84443; 84480; 84481

== ENCOUNTER 2025-09-19 08:33 | Outpatient (REF) | payer BC, OTHER, SELFPAY ==
[2025-09-19 09:57] LABS: Free T4 (Free Thyroxine) 0.91 ng/dL (0.71-1.85); Thyroid Stimulating Hormone 1.67 uIU/mL (0.32-4.0)
== END 2025-09-19 08:34 | disposition home or self-care (01) ==
LOC: HO.LAB 08:33
PROVIDERS: PCP Internal Medicine; Visit Provider Student in an Organized Health Care Education/Training Program
DX: E03.8 Other specified hypothyroidism (principal); Z3A.14 14 weeks gestation of pregnancy
CPT/HCPCS: 36415; 84436; 84439; 84443; 84480; 84481